=== PATIENT | female | born 1985 | race Caucasian/White ===

== ENCOUNTER → 2017-05-24 | Outpatient (CLI) | payer OTHER | END | disposition home or self-care (01) | LOC: C.PAPS 11:47 | PROVIDERS: ATTEND Physician Assistant | DX: Z12.4 Encounter for screening for malignant neoplasm of cervix (principal); Z11.51 Encounter for screening for human papillomavirus (HPV) ==

== ENCOUNTER 2018-12-05 02:22 | Inpatient (IN) ==
--- OUTSIDE RECORDS SUMMARY | 2018-12-05 02:25 | External Medical Summary | Continuity of Care Document ---
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) Depression (311) (F32.9) Allergies and Adverse Reactions Amoxicillin CAPS (Allergy) Medications Zoloft TABS , MikeyDMaria Teresa Refills: 0 Mirena (52 MG) 20 MCG/24HR Intrauterine Intrauterine Device , M.DMaria Teresa Refills: 0 Procedures History of eye surgery Status: Completed History of heart surgery Status: Complet ed History of section Status: Comp leted History of wisdom tooth extraction Statu s: Completed History of surgically induced S tatus: Completed Immunizations Immunizations not documented Family History Father Family history of cardiac disorder (V17.49) (Z82.49) Status: Active Mother Family history of type 2 diabetes mellitus (V18.0) (Z83.3) S tatus: Active Social History - Smoking Status Former smoker Plan of Treatment Planned Observations Planned Goals not documented Results No Known Results Results not documented Encounters Appointment; Ashlie Bennett PA-C 24-May-2017 9:10 Encounter Diagnosis: Problem not documented Appointment; Ashlie Bennett PA-C 15-May-2017 11:00 Encounter Diagnosis: Problem not documented Appointment; Ashlie Bennett PA-C 05-May-2017 11:40 Encounter Diagnosis: Problem not documented
[2018-12-05] MEDS ORDERED: SODIUM CHLORIDE 0.9% 1000ML 1,000 ML IV ONE ×2 (02:38→03:08)
[2018-12-05] MEDS ORDERED: LORazepam 2 MG/4 ML VIAL IV STA ×2 (02:44→03:06)
[2018-12-05 02:57] LABS: Basophils # (auto) 0.04 K/uL (0-0.2); Basophils % (auto) 0.2 %; Eosinophils # (auto) 0.05 K/uL (0-0.5); Eosinophils % (auto) 0.3 %; Hematocrit (blood only) 42.9 % (37-47); Hemoglobin 15.8 g/dL (12.0-16.0); Immature Granulocytes # (auto) 0.04 K/uL (0.00-0.02); Immature Granulocytes % (auto) 0.2 %; Lymphocytes # (auto) 2.45 K/uL (1.2-3.4); Lymphocytes % (auto) 14.4 %; Mean Corpuscular Hemoglobin 31.9 pg (25-34); Mean Corpuscular Hgb Conc 36.8 g/dL (32-36); Mean Corpuscular Volume 86.7 fL (80-100); Mean Platelet Volume 9.9 fL (7.4-10.4); Monocytes # (auto) 0.77 K/uL (0.11-0.59); Monocytes % (auto) 4.5 %; Neutrophils # (auto) 13.72 K/uL (1.4-6.5); Neutrophils % (auto) 80.4 %; Platelet Count 386 K/uL (130-400); RDW Coefficient of Variation 12.4 % (11.5-14.5); RDW Standard Deviation 39.4 fL (36.4-46.3); Red Blood Count 4.95 M/uL (4.2-5.4); White Blood Count 17.07 K/uL (4.8-10.8)
[2018-12-05] MEDS ORDERED: MAGNESIUM SULFATE / D5W 1 GM/100 ML BAG IV STA (03:13)
[2018-12-05] MEDS ORDERED: SODIUM BICARB 8.4% INJ 50 MEQ/50 ML SYR IV STA (03:13)
[2018-12-05 03:16] LABS: Alanine Aminotransferase 17 U/L (12-78); Albumin Level 4.7 gm/dl (3.4-5.0); Aspartate Aminotransferase 9 U/L (15-37); BUN Creatinine Ratio 11.9 (10-20); Blood Urea Nitrogen 13 mg/dl (7-18); Calcium 9.4 mg/dl (8.5-10.1); Carbon Dioxide 23 mmol/L (21-32); Chloride 105 mmol/L (98-107); Est GFR (African American) 79.7; Est GFR (Non-African American) 68.8; Glucose 133 mg/dl (70-99); Potassium 2.8 mmol/L (3.5-5.1); Sodium 137 mmol/L (136-145)
[2018-12-05 03:21] LABS: Pregnancy Test, Serum Negative (Negative)
[2018-12-05 03:22] LABS: Albumin Globulin Ratio 1.3 (0.9-2); Alkaline Phosphatase 98 U/L (45-117); Bilirubin,Total 0.6 mg/dl (0.2-1); Globulin 3.6 gm/dl (2.5-4.0); Total Protein 8.3 gm/dl (6.4-8.2)
[2018-12-05 03:23] LABS: Salicylate < 1.7 mg/dl (2.8-20)
[2018-12-05 03:26] LABS: Magnesium 1.9 mg/dl (1.8-2.4)
[2018-12-05] MEDS ORDERED: MAGNESIUM SULFATE / WTR 4 GM/100 ML BAG IV ONE (03:45)
[2018-12-05 03:56] LABS: Acetaminophen < 2 ug/ml (10-30)
[2018-12-05 04:24] LABS: Appearance Urine Turbid (Clear); Bacteria Urine Automated 1+ (Negative); Blood Urine 3+ (Negative); Color Urine Dark Yellow; Epithelial Cell Urine Auto >30 /lpf (0-5); Glucose Urine UA Trace (Negative); Ketones Urine Trace (Negative); Leukocyte Esterase Urine Trace (Negative); Nitrite Urine Negative (Negative); Protein Urine 2+ (Negative); Specific Gravity Urine 1.027 (1.000-1.030); Urobilinogen Urine Negative (Negative); WBC Urine Automated >30 /hpf (0-5); pH Urine 5.5 (4.5-7.5)
[2018-12-05 04:40] LABS: Bilirubin Urine Negative (Negative); Ictotest Urine Negative (Negative)
[2018-12-05 04:42] LABS: Calcium Oxalate Crystals Urine Present (None Prsent); Mucus Urine Present (None Prsent)
[2018-12-05 04:44] LABS: Granular Casts Urine >30 /lpf (0); RBC Urine Automated 0-4 /hpf (0-4)
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
[2018-12-05 05:01] LABS: Amphetamines+Metham, Urine Neg (Neg); Barbiturates, Urine Neg (Neg); Benzodiazepine, Urine Neg (Neg); Cocaine, Urine Neg (Neg); MDMA (Ecstacy), Urine Neg (Neg); Methadone, Urine Neg (Neg); Opiate, Urine Neg (Neg); Phencyclidine, Urine Neg (Neg)
[2018-12-05] MEDS ORDERED: CHLORASEPTIC 1.4% SOLN 180 ML BTL MT PRN (05:25)
[2018-12-05] MEDS ORDERED: SODIUM CHLORIDE 0.65% NA SOLN 45 ML (OCEAN) PRN (05:25)
[2018-12-05] MEDS ORDERED: POTASSIUM CHLORIDE 20 MEQ TABCR PO STA ×2 (05:25→12:04)
--- NOTE | 2018-12-05 06:02 | Emergency Department Note ---
Entered by Anneliese Hdz acting as a scribe for Sebastian Phelps MD ED Provider Note Name: Trang Delgado Age: 33 years old Arrives Via: Walk-in Informant: Patient CC: Overdose HPI: 33 year old female arrives for evaluation of an episode of an intentional overdose that occurred at 0000, approximately 2.5 hours prior to arrival. The patient states that she took 63 150mg Zoloft tablets. She states that she was trying to hurt herself by taking this medication. She reports that she became nauseous and started vomiting just prior to arrival. The patient states that she feels shaky. The patient denies taking any other medication, using drugs, and drinking alcohol tonight. She states that she did this because she caught her girlfriend cheating on her. The patient states that she has never tried to hurt herself previously. ROS: See above HPI for pertinent positives & negatives. A total of 10 systems reviewed and were otherwise negative. Past Medical History: No significant past medical history. Past Surgical History: A lot of surgeries. Family History: No significant family history. Social History: Never smoker Home Medications: Zoloft. Allergies Amoxicillin. Physical: Vitals: BP 145/100, P 110, R 20, O2 98%, Temp 98.1 F Exam: GENERAL: Dehydrated appearing. Tremulous. Actively vomiting. Patient is in no acute distress. EYES: No scleral icterus, unremarkable pupils. ENT: Mucous membranes moist, no nasal congestion. NECK: No masses appreciated, no meningismus, trachea is midline. RESPIRATORY: No dyspnea. Clear to auscultation and equal bilaterally. No wheeze, no rhonchi. CARDIOVASCULAR: Tachycardic rate and regular rhythm. No murmurs, rubs, gallops appreciated. GASTROINTESTINAL: Abdomen soft, non-tender, no peritonitis. Bowel sounds positive. No masses appreciated. BACK: No midline tenderness, no CVA tenderness EXTREMITIES: Normal motion all extremities, no cyanosis, no edema. NEUROLOGIC: Alert and oriented, no acute motor or sensory deficits, no focal weakness, cranial nerves grossly intact. PSYCH: Admits depression, suicidal ideations with attempt. SKIN: No rash, no jaundice, no diaphoresis. ED Course: Prior Medical Record, Triage/Nursing Notes, Medications, Allergies reviewed by Me Vital Signs: reviewed and remarkable for tachycardia Labs: Reviewed and remarkable for wnl Interventions: saline lock, nss bolus 2 L IV, ativan 2mg IV x 2, Magnesium 4gm IV Imaging: none EKG: Per My Interpretation: Indication overdose: Sinus tachy 129 qtc 571 qrs 80. No ectopy, no ischemia. No previous for comparison Blood pressure: Normal. No Referral necessary Course: 0240: Past medical records reviewed. The patient was evaluated in room B4B. A complete history and physical exam was performed. 0306: Upon reevaluation, the patient is increasingly tachycardic and continues to vomit. There is no ECG yet. 0317: I discussed the case with Poison Control who recommends giving 4mg of magnesium over 30 minutes and if QRS is acceptable, then hold off on the bicarb at the moment. 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 0346: I discussed the case with Dr. Mcpherson-[facility] Hospitalist who accepts the patient for further evaluation. Disposition: Hospitalization Differentials: Suicide attempt, mood disorder, poisoning, medication OD, narcotic OD, tylenol OD, salicylated OD, prolonged QTc, metabolic/electrolyte imbalance, trauma, rhabdo, infectious, amongst other pathologies entertained. Medical Decision Makin yr old female with history WPW s/p ablation arrives following zoloft overdose in response to girlfriend cheating on her. She is anticholinergic on arrival thus fluids and ativan. EKG with prolonged qtc consistent with massive SSRI overdose. Magnesium 4gm IV as per poison control. She was improving with all of these. Other labs without acute findings other than mild WBC elevation likely stress response. She is tachy but no other arrythymia at this time. She is maintaining airway and mentation is good. BP stable throughout. No evidence of other ingestion and she denies others as well. Admits this was suicide at tempt. Hospitalist in to evaluate further. Impression: Medication overdose Prolonged QT interval Suicide attempt Critical Care Time: I have personally spent greater than 45 minutes of critical care time in the direct management of this patient. Acute cardiac electrical changes due to overdose requiring rapid stabilization. This was a life/limb threatening event. This includes time spent evaluating patient, direct bedside care, chart review, placing orders, interpretation of diagnostic studies, discussion with consultants, patient, and family members, as well as other required patient management activities. This 45 minutes is in excess of all separately billable procedures. The scribe's documentation has been prepared under my direction and personally reviewed by me in its entirety. I confirm that the note above accurately reflect s all work, treatment, procedures, and medical decision making performed by me. 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 Other Information That Helps Us Care for You: No Feels Safe at Home: Yes Safety Concerns: Feels Safe At This Time Smoking Status: Never smoker Hx Alcohol Use: No Hx Substance Use: No Results & Data Vital Signs Vital Signs - 24 hr 12/05/18 02:24 12/05/18 02:37 12/05/18 02:55 Temperature 36.7 C Temperature Source Oral Sepsis Recent Fever Within 48 Hours No Sepsis Action Taken by Nursing No Action Required Pulse Rate 118 H Pulse Rate [Bilateral Apical] 108 H 116 H Respiratory Rate 20 22 20 Respiratory Effort / Characteristics Non-Labored Respiratory Depth Normal Blood Pressure 128/96 Blood Pressure [Right Arm] 128/88 134/105 H Blood Pressure Mean 106 Blood Pressure Mean [Right Arm] 101 114 Pulse Oximetry 100 98 98 Oxygen Delivery Method Room Air Room Air Room Air 12/05/18 03:13 12/05/18 04:26 12/05/18 04:36 Temperature Temperature Source Sepsis Recent Fever Within 48 Hours Sepsis Action Taken by Nursing Pulse Rate Pulse Rate [Bilateral Apical] 110 H 118 H 119 H Respiratory Rate 20 20 18 Respiratory Effort / Characteristics Respiratory Depth Blood Pressure Blood Pressure [Right Arm] 145/100 H 130/77 100/77 Blood Pressure Mean Blood Pressure Mean [Right Arm] 115 94 84 Pulse Oximetry 98 98 97 Oxygen Delivery Method Room Air Room Air Home Medications Current Medication List: was personally reviewed by me Laboratory Data Attestation: I reviewed the patient's lab results. Result diagrams: 12/05/18 02:46 12/05/18 02:46 Lab Results 12/05/18 12/05/18 12/05/18 Range/Units 02:46 02:46 02:46 WBC 17.07 H (4.8-10.8) K/uL RBC 4.95 (4.2-5.4) M/uL Hgb 15.8 (12.0-16.0) g/dL Hct 42.9 (37-47) % MCV 86.7 (80-100) fL MCH 31.9 (25-34) pg MCHC 36.8 H (32-36) g/dL RDW Std Deviation 39.4 (36.4-46.3) fL RDW Coeff of Fartun 12.4 (11.5-14.5) % Plt Count 386 (130-400) K/uL MPV 9.9 (7.4-10.4) fL Immature Gran % (Auto) 0.2 % Neut % (Auto) 80.4 % Lymph % (Auto) 14.4 % Hayes % (Auto) 4.5 % Eos % (Auto) 0.3 % Baso % (Auto) 0.2 % Immature Gran # (Auto) 0.04 H (0.00-0.02) K/uL Neut # (Auto) 13.72 H (1.4-6.5) K/uL Lymph # (Auto) 2.45 (1.2-3.4) K/uL Hayes # (Auto) 0.77 H (0.11-0.59) K/uL Eos # (Auto) 0.05 (0-0.5) K/uL Baso # (Auto) 0.04 (0-0.2) K/uL Sodium 137 (136-145) mmol/L Potassium 2.8 L (3.5-5.1) mmol/L Chloride 105 (98-107) mmol/L Carbon Dioxide 23 (21-32) mmol/L Anion Gap 9.0 (3-11) BUN 13 (7-18) mg/dl Creatinine 1.05 (0.6-1.2) mg/dl Est Cr Clr Drug Dosing Not Reportable Est GFR ( Amer) 79.7 Est GFR (Non-Af Amer) 68.8 BUN/Creatinine Ratio 11.9 (10-20) Glucose 133 H (70-99) mg/dl Calcium 9.4 (8.5-10.1) mg/dl Magnesium 1.9 (1.8-2.4) mg/dl Total Bilirubin 0.6 (0.2-1) mg/dl AST 9 L (15-37) U/L ALT 17 (12-78) U/L Alkaline Phosphatase 98 (45-117) U/L Total Protein 8.3 H (6.4-8.2) gm/dl Albumin 4.7 (3.4-5.0) gm/dl Globulin 3.6 (2.5-4.0) gm/dl Albumin/Globulin Ratio 1.3 (0.9-2) TSH 4.290 (0.300-4.500) uIu/ml HCG, Qual (Negative) Urine Color Urine Appearance (Clear) Urine pH (4.5-7.5) Ur Specific [place] (1.000-1.030) Urine Protein (Negative) Urine Glucose (UA) (Negative) Urine Ketones (Negative) Urine Blood (Negative) Urine Nitrite (Negative) Urine Bilirubin (Negative) Urine Urobilinogen (Negative) Ur Leukocyte Esterase (Negative) Urine WBC (Auto) (0-5) /hpf Urine RBC (Auto) (0-4) /hpf U Hyaline Cast (Auto) (0-5) /lpf U Epithel Cells (Auto) (0-5) /lpf Urine Bacteria (Auto) (Negative) Urine Crystals Calcium Oxalate Crystal (None Prsent) Granular Casts (0) /lpf Urine Mucus (None Prsent) Salicylates < 1.7 L (2.8-20) mg/dl Urine Opiates Screen (Neg) Ur Methadone, Qual (Neg) Acetaminophen < 2 L (10-30) ug/ml Urine Barbiturates (Neg) Ur Phencyclidine (PCP) (Neg) U Amphetamin/Meth Scrn (Neg) MDMA (Ecstasy) Screen (Neg) U Benzodiazepines Scrn (Neg) Ur Cocaine Metabolite (Neg) U Marijuana (THC) Screen (Neg) Ethyl Alcohol mg/dL (0-3) mg/dl 12/05/18 12/05/18 12/05/18 Range/Units 02:46 02:46 03:40 WBC (4.8-10.8) K/uL RBC (4.2-5.4) M/uL Hgb (12.0-16.0) g/dL Hct (37-47) % MCV (80-100) fL MCH (25-34) pg MCHC (32-36) g/dL RDW Std Deviation (36.4-46.3) fL RDW Coeff of Fartun (11.5-14.5) % Plt Count (130-400) K/uL MPV (7.4-10.4) fL Immature Gran % (Auto) % Neut % (Auto) % Lymph % (Auto) % Hayes % (Auto) % Eos % (Auto) % Baso % (Auto) % Immature Gran # (Auto) (0.00-0.02) K/uL Neut # (Auto) (1.4-6.5) K/uL Lymph # (Auto) (1.2-3.4) K/uL Hayes # (Auto) (0.11-0.59) K/uL Eos # (Auto) (0-0.5) K/uL Baso # (Auto) (0-0.2) K/uL Sodium (136-145) mmol/L Potassium (3.5-5.1) mmol/L Chloride (98-107) mmol/L Carbon Dioxide (21-32) mmol/L Anion Gap (3-11) BUN (7-18) mg/dl Creatinine (0.6-1.2) mg/dl Est Cr Clr Drug Dosing Est GFR ( Amer) Est GFR (Non-Af Amer) BUN/Creatinine Ratio (10-20) Glucose (70-99) mg/dl Calcium (8.5-10.1) mg/dl Magnesium (1.8-2.4) mg/dl Total Bilirubin (0.2-1) mg/dl AST (15-37) U/L ALT (12-78) U/L Alkaline Phosphatase (45-117) U/L Total Protein (6.4-8.2) gm/dl Albumin (3.4-5.0) gm/dl Globulin (2.5-4.0) gm/dl Albumin/Globulin Ratio (0.9-2) TSH (0.300-4.500) uIu/ml HCG, Qual Negative (Negative) Urine Color Urine Appearance (Clear) Urine pH (4.5-7.5) Ur Specific [place] (1.000-1.030) Urine Protein (Negative) Urine Glucose (UA) (Negative) Urine Ketones (Negative) Urine Blood (Negative) Urine Nitrite (Negative) Urine Bilirubin (Negative) Urine Urobilinogen (Negative) Ur Leukocyte Esterase (Negative) Urine WBC (Auto) (0-5) /hpf Urine RBC (Auto) (0-4) /hpf U Hyaline Cast (Auto) (0-5) /lpf U Epithel Cells (Auto) (0-5) /lpf Urine Bacteria (Auto) (Negative) Urine Crystals Calcium Oxalate Crystal (None Prsent) Granular Casts (0) /lpf Urine Mucus (None Prsent) Salicylates (2.8-20) mg/dl Urine Opiates Screen Neg (Neg) Ur Methadone, Qual Neg (Neg) Acetaminophen (10-30) ug/ml Urine Barbiturates Neg (Neg) Ur Phencyclidine (PCP) Neg (Neg) U Amphetamin/Meth Scrn Neg (Neg) MDMA (Ecstasy) Screen Neg (Neg) U Benzodiazepines Scrn Neg (Neg) Ur Cocaine Metabolite Neg (Neg) U Marijuana (THC) Screen Neg (Neg) Ethyl Alcohol mg/dL < 3.0 (0-3) mg/dl 12/05/18 Range/Units 03:40 WBC (4.8-10.8) K/uL RBC (4.2-5.4) M/uL Hgb (12.0-16.0) g/dL Hct (37-47) % MCV (80-100) fL MCH (25-34) pg MCHC (32-36) g/dL RDW Std Deviation (36.4-46.3) fL RDW Coeff of Fartun (11.5-14.5) % Plt Count (130-400) K/uL MPV (7.4-10.4) fL Immature Gran % (Auto) % Neut % (Auto) % Lymph % (Auto) % Hayes % (Auto) % Eos % (Auto) % Baso % (Auto) % Immature Gran # (Auto) (0.00-0.02) K/uL Neut # (Auto) (1.4-6.5) K/uL Lymph # (Auto) (1.2-3.4) K/uL Hayes # (Auto) (0.11-0.59) K/uL Eos # (Auto) (0-0.5) K/uL Baso # (Auto) (0-0.2) K/uL Sodium (136-145) mmol/L Potassium (3.5-5.1) mmol/L Chloride (98-107) mmol/L Carbon Dioxide (21-32) mmol/L Anion Gap (3-11) BUN (7-18) mg/dl Creatinine (0.6-1.2) mg/dl Est Cr Clr Drug Dosing Est GFR ( Amer) Est GFR (Non-Af Amer) BUN/Creatinine Ratio (10-20) Glucose (70-99) mg/dl Calcium (8.5-10.1) mg/dl Magnesium (1.8-2.4) mg/dl Total Bilirubin (0.2-1) mg/dl AST (15-37) U/L ALT (12-78) U/L Alkaline Phosphatase (45-117) U/L Total Protein (6.4-8.2) gm/dl Albumin (3.4-5.0) gm/dl Globulin (2.5-4.0) gm/dl Albumin/Globulin Ratio (0.9-2) TSH (0.300-4.500) uIu/ml HCG, Qual (Negative) Urine Color Dark Yellow Urine Appearance Turbid A (Clear) Urine pH 5.5 (4.5-7.5) Ur Specific [place] 1.027 (1.000-1.030) Urine Protein 2+ H (Negative) Urine Glucose (UA) Trace H (Negative) Urine Ketones Trace H (Negative) Urine Blood 3+ H (Negative) Urine Nitrite Negative (Negative) Urine Bilirubin Negative (Negative) Urine Urobilinogen Negative (Negative) Ur Leukocyte Esterase Trace H (Negative) Urine WBC (Auto) >30 H (0-5) /hpf Urine RBC (Auto) 0-4 (0-4) /hpf U Hyaline Cast (Auto) 10-30 H (0-5) /lpf U Epithel Cells (Auto) >30 H (0-5) /lpf Urine Bacteria (Auto) 1+ H (Negative) Urine Crystals Not Reportable Calcium Oxalate Crystal Present A (None Prsent) Granular Casts >30 H (0) /lpf Urine Mucus Present A (None Prsent) Salicylates (2.8-20) mg/dl Urine Opiates Screen (Neg) Ur Methadone, Qual (Neg) Acetaminophen (10-30) ug/ml Urine Barbiturates (Neg) Ur Phencyclidine (PCP) (Neg) U Amphetamin/Meth Scrn (Neg) MDMA (Ecstasy) Screen (Neg) U Benzodiazepines Scrn (Neg) Ur Cocaine Metabolite (Neg) U Marijuana (THC) Screen (Neg) Ethyl Alcohol mg/dL (0-3) mg/dl Administered Medications Discontinued Medications Sodium Chloride (Nss 1000ml) 1,000 mls @ 999 mls/hr IV .Q1H1M ONE Stop: 12/05/18 03:38 Last Infusion: 12/05/18 03:55 Dose: 0 mls/hr Documented by: [id number] Admin: 12/05/18 02:53 Dose: 999 mls/hr Documented by: [id number] Lorazepam (Ativan) 2 mg in 4 mls @ 4 mls/min IV NOW STA Stop: 12/05/18 02:45 Last Admin: 12/05/18 02:53 Dose: 4 mls/min Documented by: [id number] Lorazepam (Ativan) 2 mg in 4 mls @ 4 mls/min IV NOW STA Stop: 12/05/18 03:07 Last Admin: 12/05/18 03:43 Dose: 4 mls/min Documented by: [id number] Sodium Chloride (Nss 1000ml) 1,000 mls @ 999 mls/hr IV .Q1H1M ONE Stop: 12/05/18 04:08 Last Infusion: 12/05/18 04:48 Dose: 0 mls/hr Documented by: [id number] Admin: 12/05/18 03:55 Dose: 999 mls/hr Documented by: [id number] Magnesium Sulfate (Magnesium Sulfate / Wtr) 4 gm in 100 mls @ 200 mls/hr IV ONE ONE Stop: 12/05/18 04:14 Last Infusion: 12/05/18 04:47 Dose: 0 mls/hr Documented by: [id number] Cosigned by: [id number] Admin: 12/05/18 03:46 Dose: 200 mls/hr Documented by: [id number] Cosigned by: [id number] Sodium Bicarbonate (Sodium Bicarbonate 8.4%) 100 meq IV NOW STA Stop: 12/05/18 03:14 Last Admin: 12/05/18 03:44 Dose: 100 meq Documented by: [id number] Blood Pressure Blood Pressure Findings: Elevated blood pressure Blood Pressure Disposition: further management by hospitalist Discharge Plan Visit Data Chief Complaint: Overdose (Intentional) Stated Complaint: MEDS OVERDOSE ED Provider: Sebastian Phelps Discharge Problem: Medication overdose, Prolonged QT interval, Suicide attempt Patient Disposition: Being Evaluated by Hospitalist Discharge Instructions Interventions: ED Discharge Assessment Last Done: 12/05/18 05:27 Discharge Problem: Medication overdose Qualifiers: Encounter type: initial encounter Injury intent: intentional self-harm Qualified Code(s): T50.902A - Poisoning by unspecified drugs, medicaments and biological substances, intentional self-harm, initial encounter The scribe's documentation has been prepared under my direction and personally reviewed by me in its entirety. I confirm that the note above accurately reflects all work, treatment, procedures, and medical decision making performed by me.
[2018-12-05] MEDS: NSS + 20MEQ KCL 20 MEQ/1,000 ML BAG IV SCH ×2 (06:25→13:40)
[2018-12-05] MEDS: LORazepam 1 MG/2 ML VIAL IV PRN ×2 (07:38→22:29)
[2018-12-05] MEDS ORDERED: COUGH DROP (SUGAR FREE) LOZ 24 LOZ/1 BOX BUCCAL ONE (08:41)
[2018-12-05 10:38] LABS: BUN Creatinine Ratio 13.6 (10-20); Calcium 7.8 mg/dl (8.5-10.1); Creatinine Clr Calc Pharmacy 113.3 ml/min; Est GFR (African American) 131.3; Est GFR (Non-African American) 113.3; Potassium 3.3 mmol/L (3.5-5.1)
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
[2018-12-05] MEDS: ACETAMINOPHEN 325 MG TAB PO PRN (16:34)
--- NOTE | 2018-12-05 19:03 | History & Physical Bridge Note ---
Date of Service December 05, 2018 History & Physical Bridge Note I have examined the patient, reviewed the History & Physical and in the interval since the performance of the History & Physical I have noted the following changes of clinical significance: Feeling much better, still a little shaky and has a tremor at times in arms. No fevers, is sinus tachy on tele. ECGs with improving QTc throughout the day. Potassium being replaced. Denies CP, is a little SOB with exertion NAD, pleasant reg rhythm, tachycardic, no mgr CTAB no wcr Abd +BS soft NT ND Ext no edema or calf tenderness Neuro with 3+ DTRs in LEs bilat, 2+ in UEs bilat, strength full throughout CPK normal UA dirty sample Mild serotonin syndrome--> airway protected, improving, prolonged QT improving -continue IVFs, lyte replacement -ativan prn anxiety -follow ECG, follow on tele Psych consult-will need inpatient stay for suicide attempt
[2018-12-06] MEDS: LORazepam 1 MG/2 ML VIAL IV PRN (05:00)
[2018-12-06 06:11] LABS: Basophils # (auto) 0.03 K/uL (0-0.2); Basophils % (auto) 0.5 %; Eosinophils # (auto) 0.12 K/uL (0-0.5); Eosinophils % (auto) 1.9 %; Hematocrit (blood only) 35.8 % (37-47); Hemoglobin 12.4 g/dL (12.0-16.0); Immature Granulocytes # (auto) 0.01 K/uL (0.00-0.02); Immature Granulocytes % (auto) 0.2 %; Lymphocytes # (auto) 2.34 K/uL (1.2-3.4); Lymphocytes % (auto) 37.3 %; Mean Corpuscular Hemoglobin 31.5 pg (25-34); Mean Corpuscular Hgb Conc 34.6 g/dL (32-36); Mean Corpuscular Volume 90.9 fL (80-100); Mean Platelet Volume 9.7 fL (7.4-10.4); Monocytes # (auto) 0.39 K/uL (0.11-0.59); Monocytes % (auto) 6.2 %; Neutrophils # (auto) 3.39 K/uL (1.4-6.5); Neutrophils % (auto) 53.9 %; Platelet Count 244 K/uL (130-400); RDW Coefficient of Variation 12.6 % (11.5-14.5); RDW Standard Deviation 42.3 fL (36.4-46.3); Red Blood Count 3.94 M/uL (4.2-5.4); White Blood Count 6.28 K/uL (4.8-10.8)
[2018-12-06 06:39] LABS: BUN Creatinine Ratio 7.9 (10-20); Calcium 7.7 mg/dl (8.5-10.1); Creatinine Clr Calc Pharmacy 130.6 ml/min; Est GFR (African American) 137.6; Est GFR (Non-African American) 118.7; Potassium 3.6 mmol/L (3.5-5.1)
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
[2018-12-06] MEDS ORDERED: LORazepam 0.5 MG/1 ML VIAL IV PRN (10:44)
[2018-12-06] MEDS: NSS + 20MEQ KCL 20 MEQ/1,000 ML BAG IV SCH ×2 (10:59→20:11)
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
[2018-12-06] MEDS: ACETAMINOPHEN 325 MG TAB PO PRN (14:13)
[2018-12-06] MEDS ORDERED: PROMETHAZINE HCL 12.5 MG in SODIUM CHLORIDE 0.9% 50 ML IV PRN (14:20)
[2018-12-06] MEDS: DiphenhydrAMINE HCL 50 MG/ML VIAL IV PRN (14:48)
[2018-12-07] MEDS: NSS + 20MEQ KCL 20 MEQ/1,000 ML BAG IV SCH ×2 (05:45→16:01)
[2018-12-07 06:18] LABS: BUN Creatinine Ratio 10.7 (10-20); Calcium 7.9 mg/dl (8.5-10.1); Creatinine Clr Calc Pharmacy 122.3 ml/min; Est GFR (African American) 134.7; Est GFR (Non-African American) 116.2; Magnesium 1.8 mg/dl (1.8-2.4); Potassium 4.1 mmol/L (3.5-5.1)
[2018-12-07] MEDS: DiphenhydrAMINE HCL 50 MG/ML VIAL IV PRN (09:00)
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
[2018-12-07] MEDS ORDERED: LORazepam 0.5 MG/1 ML VIAL IV ONE (14:57)
[2018-12-07] MEDS ORDERED: GADOBUTROL 65ML VIAL IV PRN (17:25)
--- NOTE | 2018-12-07 17:32 | Magnetic Resonance Report ---
MR brain wo/w con CLINICAL HISTORY: left sided numbness neuropathy. Mental status change. COMPARISON STUDY: No previous studies for comparison. TECHNIQUE: Utilizing a 1.5 Tomasa magnet and dedicated coil, multiplanar, multiecho imaging of the br ain was performed pre and postcontrast administration. IV administration of 7 mL of Gadavist contras t was uneventful. FINDINGS: Diffusion-weighted images show no evidence for an acute ischemic event. Signal characteristics are unremarkable. No abnormal postcontrast enhancement. The ventricular system is midline. IMPRESSION: Normal study. The above report was generated using voice recognition software. It may contain grammatical, syntax or spelling errors. Electronically signed by: Andre Ambriz M.D. 12/07/2018 5:31 PM
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
== END 2018-12-07 20:40 | DRG 918 ==
LOC: ED 02:22 → SUATTDRO 04:49 → 2S 04:49

== ENCOUNTER 2018-12-07 18:39 | Inpatient (IN) ==
[2018-12-07] MEDS ORDERED: ACETAMINOPHEN 325 MG TAB PO PRN (21:23)
[2018-12-07] MEDS ORDERED: MAGNESIUM HYDROXIDE SUSP 30 ML UDC PO PRN (21:23)
[2018-12-07] MEDS ORDERED: SODIUM CHLORIDE 0.65% NA SOLN 45 ML (OCEAN) PRN (21:23)
[2018-12-07] MEDS ORDERED: ALUMINUM/MAGNESIUM SUSP 30 ML UDC PO PRN (21:23)
[2018-12-07] MEDS ORDERED: BISMUTH SUBSALICYLATE PER ML OMNICELL CHARGE PO PRN (21:23)
[2018-12-07] MEDS: LORazepam 0.5 MG TAB PO PRN (22:22)
[2018-12-08] MEDS: LORazepam 0.5 MG TAB PO PRN ×2 (12:24→19:31)
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
[2018-12-09 06:23] LABS: Basophils # (auto) 0.03 K/uL (0-0.2); Basophils % (auto) 0.4 %; Eosinophils # (auto) 0.15 K/uL (0-0.5); Eosinophils % (auto) 1.8 %; Hematocrit (blood only) 45.8 % (37-47); Hemoglobin 15.5 g/dL (12.0-16.0); Immature Granulocytes # (auto) 0.02 K/uL (0.00-0.02); Immature Granulocytes % (auto) 0.2 %; Mean Corpuscular Hemoglobin 30.8 pg (25-34); Mean Corpuscular Hgb Conc 33.8 g/dL (32-36); Mean Corpuscular Volume 91.1 fL (80-100); Mean Platelet Volume 10.2 fL (7.4-10.4); Monocytes # (auto) 0.66 K/uL (0.11-0.59); Monocytes % (auto) 7.8 %; Neutrophils # (auto) 4.89 K/uL (1.4-6.5); Neutrophils % (auto) 57.8 %; Platelet Count 291 K/uL (130-400); RDW Coefficient of Variation 12.5 % (11.5-14.5); RDW Standard Deviation 41.6 fL (36.4-46.3); Red Blood Count 5.03 M/uL (4.2-5.4); White Blood Count 8.45 K/uL (4.8-10.8)
[2018-12-09 06:59] LABS: Albumin Globulin Ratio 1.1 (0.9-2); Albumin Level 4.1 gm/dl (3.4-5.0); BUN Creatinine Ratio 20.4 (10-20); Bilirubin,Total 0.4 mg/dl (0.2-1); Calcium 9.3 mg/dl (8.5-10.1); Creatinine Clr Calc Pharmacy 91.3 ml/min; Est GFR (African American) 98.7; Est GFR (Non-African American) 85.1; Globulin 3.7 gm/dl (2.5-4.0); Total Protein 7.8 gm/dl (6.4-8.2)
[2018-12-09] MEDS: LORazepam 0.5 MG TAB PO PRN ×2 (12:59→21:52)
--- NOTE | 2018-12-09 15:39 | Psychiatric Progress Note ---
Date of Service December 09, 2018 Impression / Recommendations Impression 33-year-old female with long history of depression and anxiety, has been treated with moderate dose of Zoloft for many years but complains of waning efficacy. Status post Zoloft overdose in the setting of abrupt partner relational conflict with impulsive toxic ingestion immediately following her discovery of infidelity. While she initially endorsed some ambivalence about the unsuccessful nature of her suicide attempt, she is denying ongoing suicidal ideation or passive wish and expressing hopefulness that she will be able to reconcile with her girlfriend at time of psychiatric admission following me dical clearance. Physical symptoms of serotonin toxicity are improving with supportive care. (1) Major depressive disorder: 12/08/2018 -Patient admitted to the mental health unit on a voluntary status -She will be maintained on suicide precautions on the locked unit and expected to participate in unit programming as appropriate -She will require establishment of outpatient psychiatric and psychological follow-up -We will continue to hold antidepressant until symptoms of serotonin toxicity have completely abated. Given her long history of depression and anxiety, it appears likely that she will require re-initiation of an antidepressant to prevent further decompensation. As mood trend appears recently negative even prior to this acute circumstance, alternative SSRI choices will be considered. She may also benefit from something like mirtazapine given the significant GI symptoms she experiences with her anxiety chronically. 12/09/2018 -Preliminary visit with girlfriend went well. She will need a family meeting scheduled which appears unlikely to occur until Monday -Patient not yet able to convincingly contract for safety outside of the hospital -We will continue to hold antidepressant until dizziness is resolved (2) Serotonin syndrome: 12/08/2018 -Patient medically cleared for transfer yesterday -Demonstrating mild residual symptoms of serotonin toxicity this morning. Vital signs fairly unremarkable apart from mild tachycardia at 92 bpm -We will continue Ativan 0.5 mg every 6 hours as needed for now -She was encouraged to push oral fluid intake -repeat CMP and CBC in a.m. 12/09/2018 -Vital stable. Repeat labs look good as above apart from elevated BUN. Patient strongly encouraged to increase oral fluid intake Still holding antidepressant as above (3) Suicide attempt: 12/08/2018 -Impulsive toxic ingestion as per admission HPI -Denying ongoing suicidal ideation or intent at time of admission to behavioral health unit -Patient reports period of monitoring and assistance with coping strategies prior to discharge to mitigate risk for further self injury (4) Generalized anxiety disorder: 12/08/2018 -Appears long-standing and not simply relegated to times of mood decomp ensation -Continue Ativan and hydroxyzine prn's -We will consider alternative antidepressant treatment options when serotonin toxicity is fully resolved Inventory Assets Strengths: Help seeking Needs: Provision of safety, therapy, pharmacotherapy Risk Factors Assessment Male: No : Yes Do You Have Access To A Gun?: No Health Problems: No Mental Health Diagnoses: Yes Substance Use Disorders: No Previous Attempt: No Family History of Suicide: No Previous Psychiatric Hospitalization: No Hopelessness: No Protective Factors Assessment : No Employed: Yes Interval History Chief Complaint "I am just sad". Review of Systems Notes Dizziness, fair appetite, denies diarrhea Sleep Information Total Hours of Sleep: 8.5 Meal Information Percent Meal Consumed - Breakfast: 40 Percent Meal Consumed - Lunch: 100 Percent Meal Consumed - Dinner: 25 Subjective Subjective Patient was seen & assessed and interval progress reviewed with treatment team. Patient was visited by her girlfriend last evening which reportedly went fairly well. She was tearful following the visit and requested Ativan x1. Patient reports girlfriend wants to reconcile as well and feeling more hopeful but seemingly a little desperate to be discharged home to be with her girlfriend again. She acknowledges some hopefulness that they will be able to work things out but still feeling sad and describes herself as withdrawn. Despite her improving future orientation she is unable to get convincingly contract for safety and states "I do not know" when asked about ongoing suicidal ideation. Physical Exam Psychiatric Orientation: alert, oriented x 3 and cooperative Apperance: + disheveled Eye Contact: + fair eye contact Motor Behavior: n tremor Speech: normal rate/rhythm/volume of speech Affect: + depressed affect and + tearful affect Sad Thought Process: + perseveration Thought Content: + preoccupation and reality based without delusions Suicidal Thoughts: denies suicidal intent; + reports suicidal thoughts Homicidal Thoughts: denies homicidal thoughts Hallucinations: no auditory hallucinations and no visual hallucinations Cognition: language grossly intact Estimated Intelligence: average estimated intelligence Insight: + fair insight Judgement: + limited judgement Vital Signs (Past 24 Hours) Last Vital Signs Temp 36.6 C 12/09/18 06:44 Pulse 84 12/09/18 06:45 Resp 18 12/09/18 06:44 BP 118/86 12/09/18 06:45 Pulse Ox 98 12/07/18 20:50 Results & Data Laboratory Results Laboratory Results - last 24 hr 12/09/18 12/09/18 06:07 06:07 WBC 8.45 RBC 5.03 Hgb 15.5 Hct 45.8 MCV 91.1 MCH 30.8 MCHC 33.8 RDW Std Deviation 41.6 RDW Coeff of Fartun 12.5 Plt Count 291 MPV 10.2 Immature Gran % (Auto) 0.2 Neut % (Auto) 57.8 Lymph % (Auto) 32.0 [place] % (Auto) 7.8 Eos % (Auto) 1.8 Baso % (Auto) 0.4 Immature Gran # (Auto) 0.02 Neut # (Auto) 4.89 Lymph # (Auto) 2.70 [place] # (Auto) 0.66 H Eos # (Auto) 0.15 Baso # (Auto) 0.03 Sodium 138 Potassium 4.0 Chloride 102 Carbon Dioxide 30 Anion Gap 6.0 BUN 18 Creatinine 0.88 Est Cr Clr Drug Dosing 91.3 Est GFR ( Amer) 98.7 Est GFR (Non-Af Amer) 85.1 BUN/Creatinine Ratio 20.4 H Glucose 93 Calcium 9.3 Total Bilirubin 0.4 AST 10 L ALT 20 Alkaline Phosphatase 87 Total Protein 7.8 Albumin 4.1 Globulin 3.7 Albumin/Globulin Ratio 1.1 Current Inpatient Medications Current Inpatient Medications: Current Inpatient Medications Acetaminophen (Tylenol) 650 mg PO Q4H PRN PRN Reason: Headache or Minor Fever Stop: 01/06/19 21:22 Al Hydrox/Mg Hydrox/Simethicone (Maalox) 30 ml PO Q4H PRN PRN Reason: GI Upset Stop: 01/06/19 21:22 Bismuth Subsalicylate (Kaopectate) 15 ml PO PRN PRN PRN Reason: Loose Stool Stop: 01/06/19 21:22 Diphenhydramine HCl (Benadryl Capsule) 50 mg PO Q6 PRN PRN Reason: Nausea Stop: 01/06/19 21:24 Hydroxyzine HCl (Vistaril) 50 mg PO HSZ PRN PRN Reason: Insomnia Stop: 01/06/19 21:22 Hydroxyzine HCl (Vistaril) 25 mg PO Q4H PRN PRN Reason: Anxiety Stop: 01/06/19 21:22 Lorazepam (Ativan) 0.5 mg PO Q6 PRN PRN Reason: Anxiety Stop: 01/06/19 21:27 Last Admin: 12/09/18 12:59 Dose: 0.5 mg Documented by: Magnesium Hydroxide (Milk Of Magnesia) 30 ml PO DAILY PRN PRN Reason: Constipation Stop: 01/06/19 21:22 Sodium Chloride ([place] Nasal) 1 - 2 sprays NA PRN PRN PRN Reason: Nasal Dryness/Congestion Stop: 01/06/19 21:22 Mental Health & Subst Abuse Tx Therapist Name of Therapist: none Can Sealer Name of Can Sealer: none Post Discharge Appointments Primary Care Physician Name Of Family Doctor: [facility] - Krystle Reyes PA-C Primary Care Provider Appointment Comment: [address] [place] [address] Dr Villalobos, [place] [id number] Contact Information Discharge Discharge Address: [address] [place] [address], [place] [address]
--- NOTE | 2018-12-10 12:00 | Psychiatric Progress Note ---
Date of Service December 10, 2018 Impression / Recommendations Impression 33-year-old female with long history of depression and anxiety, has been treated with moderate dose of Zoloft for many years but complains of waning efficacy. Status post Zoloft overdose in the setting of abrupt partner relational conflict with impulsive toxic ingestion immediately following her discovery of infidelity. While she initially endorsed some ambivalence about the unsuccessful nature of her suicide attempt, she is denying ongoing suicidal ideation or passive wish and expressing hopefulness that she will be able to reconcile with her girlfriend at time of psychiatric admission following me dical clearance. Family meeting with girlfriend is scheduled for tomorrow. Physical symptoms of serotonin toxicity are nearly resolved, only one event of dizziness this morning. Risks, benefits, alternatives, and potential side effects of fluoxetine were reviewed with patient, who verbalized understanding and is agreeable with beginning the medication tomorrow morning. Encouraged to hold dose if symptoms of serotonin syndrome recur. Pt remains at high risk of destabilization and continued impulsive harmful behavior if she is discharged prior to adequate mitigation of risk factors. Inpatient psychiatric admission remains medically necessary. (1) Major depressive disorder: 12/08/2018 -Patient admitted to the mental health unit on a voluntary status -She will be maintained on suicide precautions on the locked unit and expected to participate in unit programming as appropriate -She will require establishment of outpatient psychiatric and psychological follow-up -We will continue to hold antidepressant until symptoms of serotonin toxicity have completely abated. Given her long history of depression and anxiety, it appears likely that she will require re-initiation of an antidepressant to prevent further decompensation. As mood trend appears recently negative even prior to this acute circumstance, alternative SSRI choices will be considered. She may also benefit from something like mirtazapine given the significant GI symptoms she experiences with her anxiety chronically. 12/09/2018 -Preliminary visit with girlfriend went well. She will need a family meeting scheduled which appears unlikely to occur until Monday -Patient not yet able to convincingly contract for safety outside of the hospital -We will continue to hold antidepressant until dizziness is resolved 12/10 - Symptoms which may have been related to a serotonin toxicity have reportedly improved, pt reporting only one episode of dizziness today which she states was related to a position change - Reviewed antidepressant medication possibilities with patient, who is in favor of initiation of fluoxetine - reviewed risks, benefits, and potential side effects of the medication, patient verbalizing understanding - Fluoxetine 20mg ordered for tomorrow morning, pt instructed to hold dose if she continues to have physical symptoms of serotonin syndrome (2) Serotonin syndrome: 12/08/2018 -Patient medically cleared for transfer yesterday -Demonstrating mild residual symptoms of serotonin toxicity this morning. Vital signs fairly unremarkable apart from mild tachycardia at 92 bpm -We will continue Ativan 0.5 mg every 6 hours as needed for now -She was encouraged to push oral fluid intake -repeat CMP and CBC in a.m. 12/09/2018 -Vital stable. Repeat labs look good as above apart from elevated BUN. Patient strongly encouraged to increase oral fluid intake Still holding antidepressant as above 12/10 - Symptoms nearly resolved; pt agreeable to initiating SSRI tomorrow morning, encouraged to hold if symptoms recur (3) Suicide attempt: 12/08/2018 -Impulsive toxic ingestion as per admission HPI -Denying ongoing suicidal ideation or intent at time of admission to behavioral health unit -Patient reports period of monitoring and assistance with coping strategies prior to discharge to mitigate risk for further self injury 12/10 - Denies SI (4) Generalized anxiety disorder: 12/08/2018 -Appears long-standing and not simply relegated to times of mood decompensation -Continue Ativan and hydroxyzine prn's -We will consider alternative antidepressant treatment options when serotonin toxicity is fully resolved 12/10 - Continue hydroxyzine prn, discussed favoring hydroxyzine over lorazepam if possible - Initiating fluoxetine 20mg as above to target mood and anxiety Inventory Assets Strengths: Help seeking Needs: Provision of safety, therapy, pharmacotherapy Risk Factors Assessment Male: No : Yes Do You Have Access To A Gun?: No Health Problems: No Mental Health Diagnoses: Yes Substance Use Disorders: No Previous Attempt: No Family History of Suicide: No Previous Psychiatric Hospitalization: No Hopelessness: No Protective Factors Assessment : No Employed: Yes Interval History Identifying Information MARTINA BARDALES is a 33-year-old F admitted on 12/07/18 18:39 on a 201 voluntary commitment status post sertraline overdose in a suicide attempt. She was admitted from the medical floor on 12/07/2018 following medical clearance. Chief Complaint "I am feeling better, my blurry vision is better today." Review of Systems Notes Constitutional: reports only 1 episode of dizziness, related to position change Cardiovascular: denied Respiratory: denied Gastrointestinal: denied Neurological: denied Psychiatric: denies symptoms other than stated above Total of at least 10 systems reviewed, pertinent positives as above and in HPI. Sleep Information Total Hours of Sleep: 7 Sleep Comments: pt on q-15 minute checks Meal Information Percent Meal Consumed - Breakfast: 100 Percent Meal Consumed - Lunch: 100 Percent Meal Consumed - Dinner: 100 Subjective Subjective Patient was seen & assessed and interval progress reviewed with treatment team. Staff report the patient has not been able to attend many groups due to reported physical concerns. Symptoms likely related to serotonin toxicity are improving reportedly. Patient is scheduled for a meeting with her girlfriend tomorrow afternoon. She has been denying suicidality to staff, but was unable to identify intrinsic reasons to live. Patient was seen today to assess progress since admission. She states that physically she is feeling a bit better. Patient reports one episode of dizziness this morning, when going from a sitting to standing position. Patient states the dizziness resolved, and has not recurred. Patient denies any continued problems with her vision, or other symptoms suggestive of continued serotonin toxicity. Patient is tearful during the encounter, verbalizing a desire to reconcile with her girlfriend. She is excited for the meeting tomorrow, and hopes they are able to "just move past this." Patient denies continuing suicidality. She admits that her mood has not been great today, but states it has been relatively consistent throughout the day. Discussed with patient the possibility of restarting antidepressant medications tomorrow morning, giving physical symptoms a chance to resolve in their entirety. We reviewed other antidepressant options, and patient is agreeable with initiation of fluoxetine after discussing likely benefit for energy and motivation. Patient was comfortable starting the medication tomorrow morning. Patient denies other acute needs or concerns at this time. Physical Exam Psychiatric Orientation: alert, oriented x 3 and cooperative Apperance: appropriately dressed, appropriately groomed and appeared stated age Eye Contact: good eye contact Motor Behavior: no abnormal motor movements (Observed while sitting upright on bed); n tremor Speech: normal rate/rhythm/volume of speech Affect: + depressed affect and + tearful affect Mood: + depressed mood ("Eh, not great") Thought Process: goal directed thought process, linear/logical thought process, clear/coherent thought process and thought association intact Thought Content: reality based without delusions; no hopelessness and no loneliness Suicidal Thoughts: denies suicidal thoughts and denies suicidal intent Homicidal Thoughts: denies homicidal thoughts Hallucinations: no auditory hallucinations and no visual hallucinations Cognition: recent memory grossly intact, attention grossly intact and language grossly intact Insight: + fair insight Judgement: + fair judgement Vital Signs (Past 24 Hours) Last Vital Signs Temp 36.6 C 12/10/18 06:37 Pulse 83 12/10/18 06:38 Resp 18 12/10/18 06:37 BP 109/76 12/10/18 06:38 Pulse Ox 98 12/07/18 20:50 Results & Data Current Inpatient Medications Current Inpatient Medications: Current Inpatient Medications Acetaminophen (Tylenol) 650 mg PO Q4H PRN PRN Reason: Headache or Minor Fever Stop: 01/06/19 21:22 Last Admin: 12/09/18 20:05 Dose: 650 mg Documented by: Al Hydrox/Mg Hydrox/Simethicone (Maalox) 30 ml PO Q4H PRN PRN Reason: GI Upset Stop: 01/06/19 21:22 Bismuth Subsalicylate (Kaopectate) 15 ml PO PRN PRN PRN Reason: Loose Stool Stop: 01/06/19 21:22 Diphenhydramine HCl (Benadryl Capsule) 50 mg PO Q6 PRN PRN Reason: Nausea Stop: 01/06/19 21:24 Hydroxyzine HCl (Vistaril) 50 mg PO HSZ PRN PRN Reason: Insomnia Stop: 01/06/19 21:22 Hydroxyzine HCl (Vistaril) 25 mg PO Q4H PRN PRN Reason: Anxiety Stop: 01/06/19 21:22 Lorazepam (Ativan) 0.5 mg PO Q6 PRN PRN Reason: Anxiety Stop: 01/06/19 21:27 Last Admin: 12/09/18 21:52 Dose: 0.5 mg Documented by: Magnesium Hydroxide (Milk Of Magnesia) 30 ml PO DAILY PRN PRN Reason: Constipation Stop: 01/06/19 21:22 Sodium Chloride (Carter Nasal) 1 - 2 sprays NA PRN PRN PRN Reason: Nasal Dryness/Congestion Stop: 01/06/19 21:22 Mental Health & Subst Abuse Tx Therapist Name of Therapist: none Reading Assistant Name of Reading Assistant: none Post Discharge Appointments Primary Care Physician Name Of Family Doctor: [facility] Krystle Reyes PA-C Primary Care Provider Appointment Comment: [address] [place] [address] [address], [place] [id number] Contact Information Discharge Discharge Address: [address] [place] [address], [place] [address]
[2018-12-11] MEDS: LORazepam 0.5 MG TAB PO PRN (08:26)
--- NOTE | 2018-12-11 09:15 | Psychiatric Progress Note ---
Date of Service December 11, 2018 Impression / Recommendations Impression 33-year-old female with long history of depression and anxiety, has been treated with moderate dose of Zoloft for many years but complains of waning efficacy. Status post Zoloft overdose in the setting of abrupt partner relational conflict with impulsive toxic ingestion immediately following her discovery of infidelity. While she initially endorsed some ambivalence about the unsuccessful nature of her suicide attempt, she is denying ongoing suicidal ideation or passive wish and expressing hopefulness that she will be able to reconcile with her girlfriend at time of psychiatric admission following me dical clearance. Family meeting with girlfriend is scheduled for this afternoon. Pt reports episodic dizziness with position changes, but otherwise denying symptoms consistent with serotonin syndrome. To be cautious, will initiate fluoxetine at 10mg this morning, then titrate to originally discussed dose of 20mg tomorrow. Signs and symptoms of serotonin syndrome were reviewed, and patient was encouraged to inform staff of any physical concerns. Pt remains at high risk of destabilization and continued impulsive harmful behavior if she is discharged prior to adequate mitigation of risk factors. Inpatient psychiatric admission remains medically necessary. (1) Major depressive disorder: 12/08/2018 -Patient admitted to the mental health unit on a voluntary status -She will be maintained on suicide precautions on the locked unit and expected to participate in unit programming as appropriate -She will require establishment of outpatient psychiatric and psychological follow-up -We will continue to hold antidepressant until symptoms of serotonin toxicity have completely abated. Given her long history of depression and anxiety, it appears likely that she will require re-initiation of an antidepressant to prevent further decompensation. As mood trend appears recently negative even prior to this acute circumstance, alternative SSRI choices will be considered. She may also benefit from something like mirtazapine given the significant GI symptoms she experiences with her anxiety chronically. 12/09/2018 -Preliminary visit with girlfriend went well. She will need a family meeting scheduled which appears unlikely to occur until Monday -Patient not yet able to convincingly contract for safety outside of the hospital -We will continue to hold antidepressant until dizziness is resolved 12/10 - Symptoms which may have been related to a serotonin toxicity have reportedly improved, pt reporting only one episode of dizziness today which she states was related to a position change - Reviewed antidepressant medication possibilities with patient, who is in favor of initiation of fluoxetine - reviewed risks, benefits, and potential side effects of the medication, patient verbalizing understanding - Fluoxetine 20mg ordered for tomorrow morning, pt instructed to hold dose if she continues to have physical symptoms of serotonin syndrome 12/11 - 20mg of fluoxetine held this morning due to physical complaints verbalized by patient - only current complaints are episodic dizziness related to position changes - pt was agreeable to beginning 10mg of fluoxetine this morning, with titration to 20mg tomorrow morning if she tolerates initial dose. S/S of serotonin syndrome were reviewed, pt encouraged to inform staff of any physical complaints - Family meeting scheduled with girlfriend this afternoon (2) Serotonin syndrome: 12/08/2018 -Patient medically cleared for transfer yesterday -Demonstrating mild residual symptoms of serotonin toxicity this morning. Vital signs fairly unremarkable apart from mild tachycardia at 92 bpm -We will continue Ativan 0.5 mg every 6 hours as needed for now -She was encouraged to push oral fluid intake -repeat CMP and CBC in a.m. 12/09/2018 -Vital stable. Repeat labs look good as above apart from elevated BUN. Patient strongly encouraged to increase oral fluid intake Still holding antidepressant as above 12/10 - Symptoms nearly resolved; pt agreeable to initiating SSRI tomorrow morning, encouraged to hold if symptoms recur 12/11 - Current reports of episodic dizziness with position changes is not considered to be a continuation of possible serotonin syndrome. Fluoxetine will be initiated at a lower dosage than initially discussed, patient encouraged to inform staff of any physical complaints (3) Suicide attempt: 12/08/2018 -Impulsive toxic ingestion as per admission HPI -Denying ongoing suicidal ideation or intent at time of admission to behavioral health unit -Patient reports period of monitoring and assistance with coping strategies prior to discharge to mitigate risk for further self injury 12/10 - 12/11 - Denies SI (4) Generalized anxiety disorder: 12/08/2018 -Appears long-standing and not simply relegated to times of mood decompensation -Continue Ativan and hydroxyzine prn's -We will consider alternative antidepressant treatment options when serotonin toxicity is fully resolved 12/10 - Continue hydroxyzine prn, discussed favoring hydroxyzine over lorazepam if possible - Initiating fluoxetine 20mg as above to target mood and anxiety 12/11 - As above Inventory Assets Strengths: Help seeking Needs: Provision of safety, therapy, pharmacotherapy Risk Factors Assessment Male: No : Yes Do You Have Access To A Gun?: No Health Problems: No Mental Health Diagnoses: Yes Substance Use Disorders: No Previous Attempt: No Family History of Suicide: No Previous Psychiatric Hospitalization: No Hopelessness: No Protective Factors Assessment : No Employed: Yes Interval History Identifying Information MARTINA BARDALES is a 33-year-old F admitted on 12/07/18 18:39 on a 201 voluntary commitment status post sertraline overdose in a suicide attempt. She was admitted from the medical floor on 12/07/2018 following medical clearance. Chief Complaint "I am just really tired." Review of Systems Notes Constitutional: reports fatigue; one episode of dizziness this AM with a position change Cardiovascular: denied Respiratory: denied Gastrointestinal: denied Neurological: denied Psychiatric: denies symptoms other than stated above Total of at least 10 systems reviewed, pertinent positives as above and in HPI. Sleep Information Total Hours of Sleep: 7.5 Sleep Comments: pt on q-15 minute checks Meal Information Percent Meal Consumed - Breakfast: 100 Percent Meal Consumed - Lunch: 50 Percent Meal Consumed - Dinner: 90 Subjective Subjective Patient was seen & assessed and interval progress reviewed with nursing and social work. Staff reports patient is scheduled for a meeting with her girlfriend this afternoon. This morning, she did report to staff that she had an episode of dizziness and felt "jittery." Administration of initial dose of fluoxetine was held until patient spoke with provider. She was seen today to assess progress since admission. Patient states that she is "tired" today, as she did not sleep well last evening. Patient states she did not request hydroxyzine to aid her sleep, but is aware that it is available to her. Patient states that she did not take fluoxetine this morning, but verbalizes only one episode of dizziness this morning with position changes. Otherwise patient denies any physical concerns suggestive of serotonin syndrome. Patient states "I am trying to do everything I need to do to get better and get out of here, I really want to start medications." Risks and benefits of initiating fluoxetine today were discussed, and it was recommended that we initiate the medication at a lower dose than originally discussed. Patient verbalized understanding of the recommendation and risks associated, and is agreeable with beginning 10 mg of fluoxetine today. She states that she is mostly "excited" for her meeting with her girlfriend. She shares with this provider that they are both supports to each other, and she is sad that she is not able to be with her girlfriend to provide that support. Patient believes the meeting will go well and states "I just want to be back with my girl." Patient denies ongoing suicidal ideation. She denies other acute needs or concerns at this time. Physical Exam Psychiatric Orientation: alert, oriented x 3 and cooperative (pleasant, but fatigued) Apperance: appropriately dressed (casually), + disheveled (laying in bed, not yet groomed for the day) and appeared stated age Eye Contact: good eye contact Motor Behavior: no abnormal motor movements (observed while laying in bed) Speech: normal rate/rhythm/volume of speech Affect: + depressed affect (appearing fatigued) and mood congruent with affect Mood: + depressed mood Thought Process: goal directed thought process, linear/logical thought process, clear/coherent thought process and thought association intact Thought Content: reality based without delusions; no hopelessness and no loneliness Suicidal Thoughts: denies suicidal thoughts, denies suicidal plan and denies suicidal intent Homicidal Thoughts: denies homicidal thoughts Hallucinations: no auditory hallucinations and no visual hallucinations Cognition: attention grossly intact and language grossly intact Insight: + fair insight Judgement: + fair judgement Vital Signs (Past 24 Hours) Last Vital Signs Temp 36.6 C 12/11/18 06:43 Pulse 83 12/11/18 06:43 Resp 18 12/11/18 06:43 BP 108/78 12/11/18 06:43 Pulse Ox 98 12/07/18 20:50 Results & Data Current Inpatient Medications Current Inpatient Medications: Current Inpatient Medications Acetaminophen (Tylenol) 650 mg PO Q4H PRN PRN Reason: Headache or Minor Fever Stop: 01/06/19 21:22 Last Admin: 12/09/18 20:05 Dose: 650 mg Documented by: Al Hydrox/Mg Hydrox/Simethicone (Maalox) 30 ml PO Q4H PRN PRN Reason: GI Upset Stop: 01/06/19 21:22 Bismuth Subsalicylate (Kaopectate) 15 ml PO PRN PRN PRN Reason: Loose Stool Stop: 01/06/19 21:22 Diphenhydramine HCl (Benadryl Capsule) 50 mg PO Q6 PRN PRN Reason: Nausea Stop: 01/06/19 21:24 Fluoxetine HCl (Prozac) 20 mg PO QAM YUNIEL Stop: 01/10/19 08:59 Hydroxyzine HCl (Vistaril) 50 mg PO HSZ PRN PRN Reason: Insomnia Stop: 01/06/19 21:22 Hydroxyzine HCl (Vistaril) 25 mg PO Q4H PRN PRN Reason: Anxiety Stop: 01/06/19 21:22 Lorazepam (Ativan) 0.5 mg PO Q6 PRN PRN Reason: Anxiety Stop: 01/06/19 21:27 Last Admin: 12/11/18 08:26 Dose: 0.5 mg Documented by: Magnesium Hydroxide (Milk Of Magnesia) 30 ml PO DAILY PRN PRN Reason: Constipation Stop: 01/06/19 21:22 Sodium Chloride (Ariton Nasal) 1 - 2 sprays NA PRN PRN PRN Reason: Nasal Dryness/Congestion Stop: 01/06/19 21:22 Mental Health & Subst Abuse Tx Therapist Name of Therapist: none Rn Mds Name of Rn Mds: none Post Discharge Appointments Primary Care Physician Name Of Family Doctor: [facility] - Krystle Reyes PA-C Primary Care Provider Appointment Comment: [address] [place] [address] [address], [place] [address] Contact Information Discharge Discharge Address: [address] [place] [id number]
[2018-12-11] MEDS: FLUOXETINE HCL 20 MG CAP PO SCH (09:32)
[2018-12-11] MEDS ORDERED: FLUOXETINE HCL 10 MG CAP PO ONE (10:44)
[2018-12-12] MEDS: FLUOXETINE HCL 20 MG CAP PO SCH (09:06)
--- NOTE | 2018-12-12 10:44 | Psychiatric Progress Note ---
Date of Service December 12, 2018 Impression / Recommendations Impression 33-year-old female with long history of depression and anxiety, has been treated with moderate dose of Zoloft for many years but complains of waning efficacy. Status post Zoloft overdose in the setting of abrupt partner relational conflict with impulsive toxic ingestion immediately following her discovery of infidelity. While she initially endorsed some ambivalence about the unsuccessful nature of her suicide attempt, she is denying ongoing suicidal ideation or passive wish and expressing hopefulness that she will be able to reconcile with her girlfriend at time of psychiatric admission following me dical clearance. Family meeting with girlfriend was held, which demonstrated a rather codependent relationship - status of their relationship remains unclear. Fluoxetine 20mg daily has been initiation, will consider further titration over the next few days. Pt admits to SI with specific plan to end her life here on the unit after a difficult meeting with her girlfriend. Although SI has resolve d today, she admits that there has not been a change in how she plans to handle these thoughts after discharge, and she remains unable to contract for safety outside of the hospital setting. Pt remains at high risk of destabilization and continued impulsive harmful behavior if she is discharged prior to adequate mitigation of risk factors. Inpatient psychiatric admission remains medically necessary. (1) Suicide attempt: 12/08/2018 -Impulsive toxic ingestion as per admission HPI -Denying ongoing suicidal ideation or intent at time of admission to behavioral health unit -Patient reports period of monitoring and assistance with coping strategies prior to discharge to mitigate risk for further self injury 12/10 - 12/11 - Denies SI 12/12 - Admits to SI last evening with specific plan to rip her sheets and hang herself on the door knob, denies act of furtherance - Continue to assist with development of safety planning and practicing effe ctive coping strategies (2) Major depressive disorder: 12/08/2018 -Patient admitted to the mental health unit on a voluntary status -She will be maintained on suicide precautions on the locked unit and expected to participate in unit programming as appropriate -She will require establishment of outpatient psychiatric and psychological follow-up -We will continue to hold antidepressant until symptoms of serotonin toxicity have completely abated. Given her long history of depression and anxiety, it appears likely that she will require re-initiation of an antidepressant to prevent further decompensation. As mood trend appears recently negative even prior to this acute circumstance, alternative SSRI choices will be considered. She may also benefit from something like mirtazapine given the significant GI symptoms she experiences with her anxiety chronically. 12/09/2018 -Preliminary visit with girlfriend went well. She will need a family meeting scheduled which appears unlikely to occur until Monday -Patient not yet able to convincingly contract for safety outside of the hospital -We will continue to hold antidepressant until dizziness is resolved 12/10 - Symptoms which may have been related to a serotonin toxicity have reportedly improved, pt reporting only one episode of dizziness today which she states was related to a position change - Reviewed antidepressant medication possibilities with patient, who is in favor of initiation of fluoxetine - reviewed risks, benefits, and potential side effects of the medication, patient verbalizing understanding - Fluoxetine 20mg ordered for tomorrow morning, pt instructed to hold dose if she continues to have physical symptoms of serotonin syndrome 12/11 - 20mg of fluoxetine held this morning due to physical complaints verbalized by patient - only current complaints are episodic dizziness related to position changes - pt was agreeable to beginning 10mg of fluoxetine this morning, with titration to 20mg tomorrow morning if she tolerates initial dose. S/S of serotonin syndrome were reviewed, pt encouraged to inform staff of any physical complaints - Family meeting scheduled with girlfriend this afternoon 12/12 - Continue fluoxetine 20mg daily, consider further titration to 40mg tomorrow - Status of relationship with girlfriend remains unclear at this time - Coordinate aftercare planning with regard to outpatient providers (3) Serotonin syndrome: 12/08/2018 -Patient medically cleared for transfer yesterday -Demonstrating mild residual symptoms of serotonin toxicity this morning. Vital signs fairly unremarkable apart from mild tachycardia at 92 bpm -We will continue Ativan 0.5 mg every 6 hours as needed for now -She was encouraged to push oral fluid intake -repeat CMP and CBC in a.m. 12/09/2018 -Vital stable. Repeat labs look good as above apart from elevated BUN. Patient strongly encouraged to increase oral fluid intake Still holding antidepressant as above 12/10 - Symptoms nearly resolved; pt agreeable to initiating SSRI tomorrow morning, encouraged to hold if symptoms recur 12/11 - Current reports of episodic dizziness with position changes is not considered to be a continuation of possible serotonin syndrome. Fluoxetine will be initiated at a lower dosage than initially discussed, patient encouraged to inform staff of any physical complaints 12/12 - Considered resolved at this time (4) Generalized anxiety disorder: 12/08/2018 -Appears long-standing and not simply relegated to times of mood decompensation -Continue Ativan and hydroxyzine prn's -We will consider alternative antidepressant treatment options when serotonin toxicity is fully resolved 12/10 - Continue hydroxyzine prn, discussed favoring hydroxyzine over lorazepam if possible - Initiating fluoxetine 20mg as above to target mood and anxiety 12/11 - As above Inventory Assets Strengths: Help seeking Needs: Provision of safety, therapy, pharmacotherapy Risk Factors Assessment Male: No : Yes Do You Have Access To A Gun?: No Health Problems: No Mental Health Diagnoses: Yes Substance Use Disorders: No Previous Attempt: No Family History of Suicide: No Previous Psychiatric Hospitalization: No Hopelessness: No Protective Factors Assessment : No Employed: Yes Interval History Identifying Information MARTINA BARDALES is a 33-year-old F admitted on 12/07/18 18:39 on a 201 voluntary commitment status post sertraline overdose in a suicide attempt. She was admitted from the medical floor on 12/07/2018 following medical clearance. Chief Complaint "Better today." Review of Systems Notes Constitutional: denied Cardiovascular: denied Respiratory: denied Gastrointestinal: denied Neurological: denied Psychiatric: denies symptoms other than stated above Total of at least 10 systems reviewed, pertinent positives as above and in HPI. Sleep Information Total Hours of Sleep: 7 Sleep Comments: pt on q-15 minute checks Meal Information Percent Meal Consumed - Breakfast: 100 Percent Meal Consumed - Lunch: 0 Percent Meal Consumed - Dinner: 75 Nutrition Comment: pt. upset after family meeting. meal dated, labeled and refrigerated Subjective Subjective Patient was seen & assessed and interval progress reviewed with treatment team. Staff reports that the patient had a somewhat difficult meeting with her girlfriend yesterday, as the girlfriend apparently had broken up with patient on the unit prior to the meeting. Patient has reportedly been tolerating initiation of fluoxetine. Patient was seen today to assess progress since admission. She shares with this provider that she is feeling "better today", stating that her meeting yesterday with her girlfriend "just was not good." The patient states she did receive a visit from her girlfriend last evening, in which the girlfriend reportedly stated that she felt she had miscommunicated some of her concerns and feelings. Patient's perception of the conversation was that they had not actually broken out, and just needed to separate themselves in order to work out individual needs. Patient states "the meeting was pretty rough, but I really think it helped. My girlfriend left the meeting and called her therapist right away. We had a wonderful visit last night." The patient does admit that she was experiencing suicidal ideation yesterday after the meeting, "while lying in my bed just thinking about everything." In this provider's attempts to discuss these thoughts further, the patient replies "D*mn, I was really hoping no one would ask me these questions." The patient states that she did have thoughts to "ripped my sheets and hang myself on the doorknob of my room." When asked what prevented her from acting on this plan, the patient states "probably just the fact that they were coming in every 5 minutes to check on me and asked how I was doing." This provider asked the patient if she feels she would be able to handle the situations without resorting to suicidal ideation or actions outside of the hospital, to which the patient responded "I do not know." Patient was encouraged by this provider to continue to discuss safety planning with staff, in order to set up barriers to impulsive harmful actions with difficult news in the future. We discussed that suicidal gestures and attempts to become a harmful pattern for the patient, and that it may take significant practice with various coping strategies in order to prevent this behavior from continuing. Patient admits that she wants to make things work with her girlfriend, and is motivated to continue to live for this reason. She denies suicidal ideation today, and denies acute needs or concerns. Physical Exam Psychiatric Orientation: alert, oriented x 3 and cooperative Apperance: appropriately dressed (Casually, in zip up sweatshirt and scrub pants), appropriately groomed and appeared stated age Eye Contact: good eye contact Motor Behavior: steady gait and station and no abnormal motor movements Speech: normal rate/rhythm/volume of speech Affect: + depressed affect Mood: + depressed mood ("Better today") Thought Process: goal directed thought process, clear/coherent thought process and thought association intact Thought Content: reality based without delusions Suicidal Thoughts: denies suicidal thoughts (At present, admits to SI with specific plan last evening) Verbalized consideration to rip her bed sheets and hang herself off of the door knob Homicidal Thoughts: denies homicidal thoughts Hallucinations: no auditory hallucinations and no visual hallucinations Cognition: remote memory grossly intact, attention grossly intact and language grossly intact Insight: + limited insight Judgement: + fair judgement Vital Signs (Past 24 Hours) Last Vital Signs Temp 36.6 C 12/12/18 06:54 Pulse 85 12/12/18 06:55 Resp 18 12/12/18 06:54 BP 112/76 12/12/18 06:55 Pulse Ox 98 12/07/18 20:50 Results & Data Current Inpatient Medications Current Inpatient Medications: Current Inpatient Medications Acetaminophen (Tylenol) 650 mg PO Q4H PRN PRN Reason: Headache or Minor Fever Stop: 01/06/19 21:22 Last Admin: 12/09/18 20:05 Dose: 650 mg Documented by: Al Hydrox/Mg Hydrox/Simethicone (Maalox) 30 ml PO Q4H PRN PRN Reason: GI Upset Stop: 01/06/19 21:22 Bismuth Subsalicylate (Kaopectate) 15 ml PO PRN PRN PRN Reason: Loose Stool Stop: 01/06/19 21:22 Diphenhydramine HCl (Benadryl Capsule) 50 mg PO Q6 PRN PRN Reason: Nausea Stop: 01/06/19 21:24 Fluoxetine HCl (Prozac) 20 mg PO QAM YUNIEL Stop: 01/10/19 08:59 Last Admin: 12/12/18 09:06 Dose: 20 mg Documented by: Hydroxyzine HCl (Vistaril) 50 mg PO HSZ PRN PRN Reason: Insomnia Stop: 01/06/19 21:22 Last Admin: 12/11/18 21:47 Dose: 50 mg Documented by: Hydroxyzine HCl (Vistaril) 25 mg PO Q4H PRN PRN Reason: Anxiety Stop: 01/06/19 21:22 Last Admin: 12/11/18 12:52 Dose: 25 mg Documented by: Lorazepam (Ativan) 0.5 mg PO Q6 PRN PRN Reason: Anxiety Stop: 01/06/19 21:27 Last Admin: 12/11/18 08:26 Dose: 0.5 mg Documented by: Magnesium Hydroxide (Milk Of Magnesia) 30 ml PO DAILY PRN PRN Reason: Constipation Stop: 01/06/19 21:22 Sodium Chloride ([place] Nasal) 1 - 2 sprays NA PRN PRN PRN Reason: Nasal Dryness/Congestion Stop: 01/06/19 21:22 Mental Health & Subst Abuse Tx Therapist Name of Therapist: none Fisher Scallop Name of Fisher Scallop: none Post Discharge Appointments Primary Care Physician Name Of Family Doctor: [facility] - Krystle Reyes PA-C Primary Care Provider Appointment Comment: [address] [place] [address] [address], [place] [id number] Contact Information Discharge Discharge Address: [address] [place] [id number]
[2018-12-13] MEDS: FLUOXETINE HCL 20 MG CAP PO SCH (08:46)
--- NOTE | 2018-12-13 10:51 | Psychiatric Progress Note ---
Date of Service December 13, 2018 Impression / Recommendations Impression 33-year-old female with long history of depression and anxiety, has been treated with moderate dose of Zoloft for many years but complains of waning efficacy. Status post Zoloft overdose in the setting of abrupt partner relational conflict with impulsive toxic ingestion immediately following her discovery of infidelity. While she initially endorsed some ambivalence about the unsuccessful nature of her suicide attempt, she is denying ongoing suicidal ideation or passive wish and expressing hopefulness that she will be able to reconcile with her girlfriend at time of psychiatric admission following me dical clearance. Family meeting with girlfriend was held, which demonstrated a rather codependent relationship - status of their relationship remains unclear. Fluoxetine has been titrated to a dose of 40mg daily during her admission. Although patient admits to resolution of SI, she admits that there has not been a change in how she plans to handle these thoughts after discharge, which leaves her at high risk of impulsive harm to self if discharged. Inpatient psychiatric admission remains medically necessary. (1) Suicide attempt: 12/08/2018 -Impulsive toxic ingestion as per admission HPI -Denying ongoing suicidal ideation or intent at time of admission to behavioral health unit -Patient reports period of monitoring and assistance with coping strategies prior to discharge to mitigate risk for further self injury 12/10 - 12/11 - Denies SI 12/12 - Admits to SI last evening with specific plan to rip her sheets and hang herself on the door knob, denies act of furtherance - Continue to assist with development of safety planning and practicing effective coping strategies 12/13 - Denies SI today - Has been working on safety planning, but is still unable to verbalize a reliable safety plan aside from having "confidence" she won't try to hurt herself again (2) Major depressive disorder: 12/08/2018 -Patient admitted to the mental health unit on a voluntary status -She will be maintained on suicide precautions on the locked unit and expected to participate in unit programming as appropriate -She will require establishment of outpatient psychiatric and psychological follow-up -We will continue to hold antidepressant until symptoms of serotonin toxicity have completely abated. Given her long history of depression and anxiety, it appears likely that she will require re-initiation of an antidepressant to prevent further decompensation. As mood trend appears recently negative even prior to this acute circumstance, alternative SSRI choices will be considered. She may also benefit from something like mirtazapine given the significant GI symptoms she experiences with her anxiety chronically. 12/09/2018 -Preliminary visit with girlfriend went well. She will need a family meeting scheduled which appears unlikely to occur until Monday -Patient not yet able to convincingly contract for safety outside of the hospital -We will continue to hold antidepressant until dizziness is resolved 12/10 - Symptoms which may have been related to a serotonin toxicity have repor tedly improved, pt reporting only one episode of dizziness today which she states was related to a position change - Reviewed antidepressant medication possibilities with patient, who is in favor of initiation of fluoxetine - reviewed risks, benefits, and potential side effects of the medication, patient verbalizing understanding - Fluoxetine 20mg ordered for tomorrow morning, pt instructed to hold dose if she continues to have physical symptoms of serotonin syndrome 12/11 - 20mg of fluoxetine held this morning due to physical complaints verbalized by patient - only current complaints are episodic dizziness related to position changes - pt was agreeable to beginning 10mg of fluoxetine this morning, with titration to 20mg tomorrow morning if she tolerates initial dose. S/S of serotonin syndrome were reviewed, pt encouraged to inform staff of any physical complaints - Family meeting scheduled with girlfriend this afternoon 12/12 - Continue fluoxetine 20mg daily, consider further titration to 40mg tomorrow - Status of relationship with girlfriend remains unclear at this time - Coordinate aftercare planning with regard to outpatient providers 12/13 - Additional dose of fluoxetine provided this morning, so will receive a total of 40mg today - continue 40mg daily - Has been communicating regularly with girlfriend, who has been supportive recently - Coordinate aftercare plans, as MA is not yet active (3) Serotonin syndrome: 12/08/2018 -Patient medically cleared for transfer yesterday -Demonstrating mild residual symptoms of serotonin toxicity this morning. Vital signs fairly unremarkable apart from mild tachycardia at 92 bpm -We will continue Ativan 0.5 mg every 6 hours as needed for now -She was encouraged to push oral fluid intake -repeat CMP and CBC in a.m. 12/09/2018 -Vital stable. Repeat labs look good as above apart from elevated BUN. Patient strongly encouraged to increase oral fluid intake Still holding antidepressant as above 12/10 - Symptoms nearly resolved; pt agreeable to initiating SSRI tomorrow morning, encouraged to hold if symptoms recur 12/11 - Current reports of episodic dizziness with position changes is not considered to be a continuation of possible serotonin syndrome. Fluoxetine will be initiated at a lower dosage than initially discussed, patient encouraged to inform staff of any physical complaints 12/12 - Considered resolved at this time (4) Generalized anxiety disorder: 12/08/2018 -Appears long-standing and not simply relegated to times of mood decompensation -Continue Ativan and hydroxyzine prn's -We will consider alternative antidepressant treatment options when serotonin toxicity is fully resolved 12/10 - Continue hydroxyzine prn, discussed favoring hydroxyzine over lorazepam if possible - Initiating fluoxetine 20mg as above to target mood and anxiety 12/11 - As above Inventory Assets Strengths: Help seeking Needs: Provision of safety, therapy, pharmacotherapy Risk Factors Assessment Male: No : Yes Do You Have Access To A Gun?: No Health Problems: No Mental Health Diagnoses: Yes Substance Use Disorders: No Previous Attempt: No Family History of Suicide: No Previous Psychiatric Hospitalization: No Hopelessness: No Protective Factors Assessment : No Employed: Yes Interval History Identifying Information MARTINA BARDALES is a 33-year-old F admitted on 12/07/18 18:39 on a 201 voluntary commitment status post sertraline overdose in a suicide attempt. She was admitted from the medical floor on 12/07/2018 following medical clearance. Chief Complaint "I'm feeling pretty good today." Review of Systems Notes Constitutional: denied Cardiovascular: denied Respiratory: denied Gastrointestinal: denied Neurological: denied Psychiatric: denies symptoms other than stated above Total of at least 10 systems reviewed, pertinent positives as above and in HPI. Sleep Information Total Hours of Sleep: 6.25 Sleep Comments: pt on q-15 minute checks Meal Information Percent Meal Consumed - Breakfast: 75 Percent Meal Consumed - Lunch: 0 Percent Meal Consumed - Dinner: 100 Nutrition Comment: pt. upset after family meeting. meal dated, labeled and refrigerated Subjective Subjective Patient was seen & assessed and interval progress reviewed with nursing and social work. Staff reports the patient has been participating in more groups recently. She has been taking frequent phone calls from her girlfriend. Pt rated her mood a 7/10 and "happy" last evening. Pt was seen today to assess progress since admission. Pt states she is feeling "pretty good today." Patient states that she is rather proud of herself, as she was able to stay out of her room most of the day yesterday. Patient states that although she was tired, she felt happy she was able to socialize with peers and read a bit. Patient states that she continues to receive visits and phone calls from her girlfriend, who at this time seems to be supportive. Patient denies continued suicidal ideation; however, is unable to verbalize a concrete safety plan for use after discharge. When asked how she plans to approach negative thoughts or suicidality different after this admission, the patient simply states "I am just pretty confident that it will not happen anymore." This provider emphasized the importance of having safety check points, and a clear idea of ways to ask for help or distract herself from these thoughts in the future. Patient continues to state that she has not put much thought into a concrete safety plan during this admission. Patient was encouraged to do so, especially as she states she is "antsy to get back to work." This provider expressed concern that there is not much difference in how she may handle the situations in the future, putting her at risk for future impulsive suicidal actions. Patient verbalized understanding of this concern, and was agreeable to focus again on ways she plans to manage negative thoughts moving forward. We discussed potential to titrate fluoxetine to 40 mg daily, which patient is agreeable with. Risks, benefits, and potential side effects were reviewed - patient verbalized understanding and was agreeable with the plan. Patient denies other acute needs or concerns at this time. Physical Exam Psychiatric Orientation: alert, oriented x 3 and cooperative Apperance: appropriately dressed, appropriately groomed and appeared stated age Eye Contact: good eye contact Motor Behavior: steady gait and station and no abnormal motor movements Speech: normal rate/rhythm/volume of speech Affect: + blunted affect (appearing fatigued and mildly subdued) and mood congruent with affect; no tearful affect Mood: no depressed mood ("I feel really good actually") Thought Process: goal directed thought process, clear/coherent thought process and thought association intact Thought Content: reality based without delusions; no hopelessness and no worthlessness Suicidal Thoughts: denies suicidal thoughts, denies suicidal plan and denies suicidal intent Homicidal Thoughts: denies homicidal thoughts Hallucinations: no auditory hallucinations and no visual hallucinations Cognition: attention grossly intact and language grossly intact Insight: + fair insight Judgement: + fair judgement Vital Signs (Past 24 Hours) Last Vital Signs Temp 36.6 C 12/13/18 06:44 Pulse 81 12/13/18 06:44 Resp 18 12/13/18 06:44 BP 128/76 12/13/18 06:44 Pulse Ox 98 12/07/18 20:50 Results & Data Current Inpatient Medications Current Inpatient Medications: Current Inpatient Medications Acetaminophen (Tylenol) 650 mg PO Q4H PRN PRN Reason: Headache or Minor Fever Stop: 01/06/19 21:22 Last Admin: 12/09/18 20:05 Dose: 650 mg Documented by: Al Hydrox/Mg Hydrox/Simethicone (Maalox) 30 ml PO Q4H PRN PRN Reason: GI Upset Stop: 01/06/19 21:22 Bismuth Subsalicylate (Kaopectate) 15 ml PO PRN PRN PRN Reason: Loose Stool Stop: 01/06/19 21:22 Diphenhydramine HCl (Benadryl Capsule) 50 mg PO Q6 PRN PRN Reason: Nausea Stop: 01/06/19 21:24 Fluoxetine HCl (Prozac) 20 mg PO NOW ONE Stop: 12/13/18 10:50 Fluoxetine HCl (Prozac) 40 mg PO QAM YUNIEL Stop: 01/13/19 08:59 Hydroxyzine HCl (Vistaril) 50 mg PO HSZ PRN PRN Reason: Insomnia Stop: 01/06/19 21:22 Last Admin: 12/12/18 21:26 Dose: 50 mg Documented by: Hydroxyzine HCl (Vistaril) 25 mg PO Q4H PRN PRN Reason: Anxiety Stop: 01/06/19 21:22 Last Admin: 12/11/18 12:52 Dose: 25 mg Documented by: Lorazepam (Ativan) 0.5 mg PO Q6 PRN PRN Reason: Anxiety Stop: 01/06/19 21:27 Last Admin: 12/11/18 08:26 Dose: 0.5 mg Documented by: Magnesium Hydroxide (Milk Of Magnesia) 30 ml PO DAILY PRN PRN Reason: Constipation Stop: 01/06/19 21:22 Sodium Chloride ([place] Nasal) 1 - 2 sprays NA PRN PRN PRN Reason: Nasal Dryness/Congestion Stop: 01/06/19 21:22 Mental Health & Subst Abuse Tx Psychiatrist Name of Psychiatrist: Renetta Bowles Psychiatrist's Time of Appointment with Psychiatrist: Will need approval for county, then can be scheduled Psychiatric Appointment Comment: [address] [place] [address] Therapist Name of Therapist: [facility] Therapist's Date of Therapist Appointment: 12/21/18 Time of Therapist Appointment: 8:30 a.m. Therapy Appointment Comment: [address] [place] [address] Solid Surface Fabricator Name of Solid Surface Fabricator: [employer] Phone Number for Solid Surface Fabricator: Case Management Appointment Comment: [address] [place] [address] Post Discharge Appointments Primary Care Physician Name Of Family Doctor: [facility] - Krystle Reyes PA-C Primary Care Time of Appointment with PCP: Follow up as needed. Provider Appointment Comment: [address] [place] [address] Dr Villalobos, CELESTE Lux [id number] Contact Information Discharge Discharge Address: [address] [place] [address] [place] [address]
[2018-12-13] MEDS ORDERED: FLUOXETINE HCL 20 MG CAP PO STA (10:55)
[2018-12-14] MEDS ORDERED: FLUOXETINE HCL 20 MG CAP PO SCH (09:00)
--- NOTE | 2018-12-14 11:39 | Discharge Summary ---
Date of Service December 14, 2018 History of Present Illness Patient presented to the ER on 12/05/2018 following an intentional overdose of sertraline taking 63 100 mg tablets. Overdose occurred in the setting of intense argument with her girlfriend after discovering that her girlfriend was cheating on her. After vomiting she experienced chest discomfort and dyspnea prompting ER presentation. Upon arrival she was reportedly afebrile but tachycardic tremulous and anxious with a QTC prolonged at 571. She was treated with sodium bicarb, mag sulfate, and Ativan with improvement. At that time she stated that she truly wanted to end her life with the overdose. On the medical floor she was treated for a mild serotonin toxicity with resolution of QTC prolongation, improving myalgias, no fevers, no evidence of rhabdo. Brain MRI was checked and normal after complaint of feeling of heaviness and numbness throughout her entire left upper and lower extremities. She was seen for psychiatric consultation by Virgie Saleh PA-C, on 12/05/2018 summarized as follows: Patient admitted to taking 63 100 mg sertraline tablets after finding other female at the home that she shares with her girlfriend and believed that her girlfriend was cheating on her and impulsively took the medication in an attempt of self-harm. After vomiting she called her girlfriend to take her to the ER, ultimately transported by her girlfriend's ex-. 302 petitioning statement completed by the ER indicating that the patient admitted in the ER that she was in fact trying to kill herself. Patient later stated "I made a stupid choice." She acknowledged "I just wanted to " at the time of her ingestion. She denied current suicidality at time of psychiatric consultation but acknowledged ambivalence about being alive. "In a small way I wish it would have worked because may be that she would feel bad about which she did to me." She indicated that the action was impulsive and had not previously been considering suicide. She noted worsening mood prior to this acute circumstance with depressive symptoms including increased desire to sleep, difficulty falling asleep, fluctuant appetite, increased hopelessness. She also noted increased anxiety including racing thoughts, difficulty concentrating. She denied recent panic attacks but noted historical panic attacks. Indicated she has been on Zoloft since 13 years old but recently feeling that it has been less effective. Has not been able to tolerate higher doses in the past. She denied HI, SIB, AVH, paranoia, herbert, hypomania, OCD, PTSD, eating disorder. On interview this morning patient presents similarly. She reports depression dates back to high school years but denies previously considering suicide. She describes her mood as "broken hearted." She states that she loves her girlfriend of 2 years and hopes that they will be able to reconcile. She has always struggled with low mood at baseline and excessive worry. Anxiety not uncommonly so severe that it causes nausea to the point of vomiting. She has had panic attacks in the past, but none recent and she denies agoraphobia. She first began antidepressant treatment around 2008 with Zoloft with some perceived benefit. Augmentation trials with trazodone and BuSpar were not well-tolerated. She denies alternative antidepressant treatment history. She confirms absence of history of clear bipolar symptoms or history of psychosis. She continues to feel cognitively foggy, and balanced, and a little sweaty from her sertraline overdose. Ativan prn dose last night was helpful in mitigating some of the symptoms. She expresses significant sadness but denies hopelessness or ongoing suicidal ideation at present. Physical Exam Psychiatric Orientation: alert and oriented x 3 Apperance: appropriately dressed and appropriately groomed Eye Contact: + fair eye contact Motor Behavior: + tremor Speech: normal rate/rhythm/volume of speech The patient's affect is somewhat anxious at times, but generally euthymic. "Nervous right now, but much better." Thought Process: goal directed thought process, linear/logical thought process and clear/coherent thought process Thought Content: reality based without delusions Suicidal Thoughts: denies suicidal thoughts The patient is future oriented and describes number of plans for the future Homicidal Thoughts: denies homicidal thoughts Hallucinations: no auditory hallucinations Cognition: recent memory grossly intact, remote memory grossly intact, attention grossly intact and language grossly intact Estimated Intelligence: average estimated intelligence Insight: + fair insight Judgement: + fair judgement Vital Signs (Past 24 Hours) Last Vital Signs Temp 36.5 C 12/14/18 10:31 Pulse 81 12/14/18 10:31 Resp 18 12/14/18 10:31 BP 103/69 12/14/18 10:31 Pulse Ox 98 12/14/18 10:31 Principal Diagnosis Depression, not otherwise specified Psychiatric Data During the course of hospitalization the patient was offered various modalities of psychiatric treatment and education. Specifically, she participated fairly actively in individual, group and activity therapies. Also, family interventions were provided with the patient's girlfriend and domestic partner. In addition, the patient was started on fluoxetine and the dose of this medication was titrated to 40 mg a day. The patient indicated that she was tolerating fluoxetine well, noted no side effects, and also reported improved mood and diminished anxiety. The patient also reports that hydroxyzine 25 mg every 4 hours "as needed" for anxiety has been quite effective without causing excess sedation. She also found hydroxyzine 50 mg at bedtime was helpful in sleep induction and sleep maintenance. In her individual and group therapies the patient focused on developing a plan for safety in the community. She focused on issues related to establishing and maintaining certain boundaries in her relationship with her girlfriend, as well as the need to understand that the girlfriend, herself, has certain emotional issues that need to be taken into consideration and understood. The patient's thoughts of suicide resolved, and the patient consistently reported that she was no longer having any thoughts of suicide. In fact, the patient reports that the very thought of taking another overdose is emotionally distressing to her, in part because the entire experience associated with her overdose of sertraline was so unpleasant. She may plans to live with a friend following her discharge, and she and her girlfriend, Jefferson, plan to see each other regularly and work on their relationships before deciding whether or not to live together again. When asked on the day of discharge what she would do if she returned to the community and Jefferson were to tell her that she did not wish to pursue the relationship any further, the patient said "well, I realize that could happen. Of course I will be extremely upset, and I realize that I might even have some thoughts of suicide, but I believe that I now know how to avoid impulsively acting on such thoughts." Day of Discharge Assessment On the day of discharge, the patient was found to be appropriately dressed and groomed. She was fully cooperative with the discharge assessment. She was mildly tremulous (right hand) but this dissipated and stopped during the encounter, and the patient explained that she has always gotten "nervous" under certain circumstances, and today she is eager to be discharged. Patient's eye contact is fair. Her thought processes demonstrated tight associations. Her speech is delivered at a normal rate and volume and is fully spontaneous. The patient's thought content is devoid of any psychotic features. She is able to say that she recognizes that she can expect to encounter emotional crises in the future, and now feels prepared to cope with these crisis without behaving impulsively. Patient reports that she is not having any thoughts of suicide and is future oriented, describes both short and long-term plans for the future, and is able to describe her mind for safety in the community. Patient also reports that she is having no thoughts of causing physical harm to the person or property of others. 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 Transition of Care Transition Of Care Record: was reviewed with the patient Advance Directives Advance Directives Information Provided: Yes Advance Directives: No Mental Health Advance Directive: No Advance Directives on File: No Living Will: No Power of [employer]: No Advance Directives Reason:: Declines as Mental Health Visit. Risk Factors Assessment History of serious suicide attempt. Major depression. Access to lethal means. Difficulty in her rheumatic relationship. These factors are mitigated by her commitment to ongoing treatment, her commitment to safety, and her improved coping strategies. Male: No : Yes Do You Have Access To A Gun?: No Health Problems: No Mental Health Diagnoses: Yes Substance Use Disorders: No Previous Attempt: No Family History of Suicide: No Previous Psychiatric Hospitalization: No Hopelessness: No Protective Factors Assessment : No Employed: Yes Stable Relationships: Yes Supportive Family: Yes Tobacco Cessation at Discharge Tobacco Cessation Medication Prescribed at Discharge: Not Applicable/Non-Smoker Total Time Total Time Spent: Greater Than 30 Minutes Total Time Includes: Examination of the patient, Discharge Planning, Medication Reconciliation and Communication with other providers Discharge Data Lab Results 12/09/18 12/09/18 06:07 06:07 WBC 8.45 RBC 5.03 Hgb 15.5 Hct 45.8 MCV 91.1 MCH 30.8 MCHC 33.8 RDW Std Deviation 41.6 RDW Coeff of Fartun 12.5 Plt Count 291 MPV 10.2 Immature Gran % (Auto) 0.2 Neut % (Auto) 57.8 Lymph % (Auto) 32.0 [place] % (Auto) 7.8 Eos % (Auto) 1.8 Baso % (Auto) 0.4 Immature Gran # (Auto) 0.02 Neut # (Auto) 4.89 Lymph # (Auto) 2.70 [place] # (Auto) 0.66 H Eos # (Auto) 0.15 Baso # (Auto) 0.03 Sodium 138 Potassium 4.0 Chloride 102 Carbon Dioxide 30 Anion Gap 6.0 BUN 18 Creatinine 0.88 Est Cr Clr Drug Dosing 91.3 Est GFR ( Amer) 98.7 Est GFR (Non-Af Amer) 85.1 BUN/Creatinine Ratio 20.4 H Glucose 93 Calcium 9.3 Total Bilirubin 0.4 AST 10 L ALT 20 Alkaline Phosphatase 87 Total Protein 7.8 Albumin 4.1 Globulin 3.7 Albumin/Globulin Ratio 1.1 Hospital Course (1) Suicide attempt: 12/08/2018 -Impulsive toxic ingestion as per admission HPI -Denying ongoing suicidal ideation or intent at time of admission to behavioral health unit -Patient reports period of monitoring and assistance with coping strategies prior to discharge to mitigate risk for further self injury 12/10 - 12/11 - Denies SI 12/12 - Admits to SI last evening with specific plan to rip her sheets and hang herself on the door knob, denies act of furtherance - Continue to assist with development of safety planning and practicing effective coping strategies 12/13 - Denies SI today 12/14 -The patient continues to deny suicidal ideation. Today, she was able to describe in some detail her plan for safety upon return to the community. She also notes that she feels that she is learned a number of coping strategies here in the hospital and, perhaps most importantly, she has become more aware that other persons are experiencing distress that is similar to hers and she realizes that she is not alone. -The patient spontaneously tells us that she realizes that she is likely to experience emotional crises in the future, particularly within the context of her relationship with her girlfriend. However, she says that she believes that she now has good strategies to avoid acting on them. She notes that she has learned that simply interrupting herself and her thoughts by essentially "standing back" and considering what she is doing while, at the same time, "walking away and taking a break" is helpful to her in terms of impulsively acting up on feelings. -We considered the "middle step," by which is meant that between an emotion and an action needs to be carefully considering and processing the emotion before taking an action. 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 The patient laughed and said, "I would not have the guts to steal something from work. There are cameras everywhere and I do get caught!" Patient also says that the active regurgitating the overdose that she had taken was so unpleasant, and the complications associated with the overdose were so severe that she tells us that the very thought of taking another drug overdose discussed her. (2) Major depressive disorder: 12/08/2018 -Patient admitted to the mental health unit on a voluntary status -She will be maintained on suicide precautions on the locked unit and expected to participate in unit programming as appropriate -She will require establishment of outpatient psychiatric and psychological follow-up -We will continue to hold antidepressant until symptoms of serotonin toxicity have completely abated. Given her long history of depression and anxiety, it appears likely that she will require re-initiation of an antidepressant to prevent further decompensation. As mood trend appears recently negative even prior to this acute circumstance, alternative SSRI choices will be considered. She may also benefit from something like mirtazapine given the significant GI symptoms she experiences with her anxiety chronically. 12/09/2018 -Preliminary visit with girlfriend went well. She will need a family meeting scheduled which appears unlikely to occur until Monday -Patient not yet able to convincingly contract for safety outside of the hospital -We will continue to hold antidepressant until dizziness is resolved 12/10 - Symptoms which may have been related to a serotonin toxicity have reportedly improved, pt reporting only one episode of dizziness today which she states was related to a position change - Reviewed antidepressant medication possibilities with patient, who is in favor of initiation of fluoxetine - reviewed risks, benefits, and potential side effects of the medication, patient verbalizing understanding - Fluoxetine 20mg ordered for tomorrow morning, pt instructed to hold dose if she continues to have physical symptoms of serotonin syndrome 12/11 - 20mg of fluoxetine held this morning due to physical complaints verbalized by patient - only current complaints are episodic dizziness related to position changes - pt was agreeable to beginning 10mg of fluoxetine this morning, with titration to 20mg tomorrow morning if she tolerates initial dose. S/S of serotonin syndrome were reviewed, pt encouraged to inform staff of any physical complaints - Family meeting scheduled with girlfriend this afternoon 12/12 - Continue fluoxetine 20mg daily, consider further titration to 40mg tomorrow - Status of relationship with girlfriend remains unclear at this time - Coordinate aftercare planning with regard to outpatient providers 12/13 - Additional dose of fluoxetine provided this morning, so will receive a total of 40mg today - continue 40mg daily - Has been communicating regularly with girlfriend, who has been supportive recently - Coordinate aftercare plans, as MA is not yet active 12/14 -The patient reports that she feels that she is tolerating fluoxetine 40 mg daily without any particular difficulty. -She notes that she realizes that she will need ongoing treatment for depression, and although her mood has improved considerably she recognizes that symptoms of depression can wax and wane. (3) Serotonin syndrome: 12/08/2018 -Patient medically cleared for transfer yesterday -Demonstrating mild residual symptoms of serotonin toxicity this morning. Vital signs fairly unremarkable apart from mild tachycardia at 92 bpm -We will continue Ativan 0.5 mg every 6 hours as needed for now -She was encouraged to push oral fluid intake -repeat CMP and CBC in a.m. 12/09/2018 -Vital stable. Repeat labs look good as above apart from elevated BUN. Patient strongly encouraged to increase oral fluid intake Still holding antidepressant as above 12/10 - Symptoms nearly resolved; pt agreeable to initiating SSRI tomorrow morning, encouraged to hold if symptoms recur 12/11 - Current reports of episodic dizziness with position changes is not considered to be a continuation of possible serotonin syndrome. Fluoxetine will be initiated at a lower dosage than initially discussed, patient encouraged to inform staff of any physical complaints 12/12 - Considered resolved at this time (4) Generalized anxiety disorder: 12/08/2018 -Appears long-standing and not simply relegated to times of mood decompensation -Continue Ativan and hydroxyzine prn's -We will consider alternative antidepressant treatment options when serotonin toxicity is fully resolved 12/10 - Continue hydroxyzine prn, discussed favoring hydroxyzine over lorazepam if possible - Initiating fluoxetine 20mg as above to target mood and anxiety 12/11 - As above 12/14 -The patient continues to report anxiety, and notes that the anxiety tends to wax and wane in response to situational factors. For example, today during her assessment she was mildly tremulous, but notes that she had not been feeling particularly anxious before starting interview and recognizes that the anxiety levels are likely to diminish once the discharge has been finalized. -Patient reports that she did not like Ativan as a anxiolytic because it made her feel somewhat oversedated and "fuzzy." However, she notes that hydroxyzine 25 mg once or twice a day with hydroxyzine 50 mg at bedtime has been quite eff ective both for anxiety at the lower dose, and, at the higher dose, for sleep without causing excess sedation. Mental Health & Subst Abuse Tx Psychiatrist Name of Psychiatrist: Renetta Bowles Psychiatrist's Time of Appointment with Psychiatrist: Can be scheduled after intake Psychiatric Appointment Comment: [address] [place] [address] Psychiatrist Release of Information: Obtained, Reviewed and Signed Therapist Name of Therapist: [facility] Therapist's Date of Therapist Appointment: 12/21/18 Time of Therapist Appointment: 8:30 a.m. Therapy Appointment Comment: [address] [place] [address] [place] [address] Therapist Release of Information: Obtained, Reviewed and Signed Window Decorator Name of Window Decorator: [facility] Phone Number for Window Decorator: Date of Appointment with Window Decorator: 12/20/18 Time of Appointment with Window Decorator: 9 am Case Management Appointment Comment: [address] [place] [address] [place] [address] Window Decorator Release of Information: Obtained, Reviewed and Signed Post Discharge Appointments Primary Care Physician Name Of Family Doctor: [facility] - Krystle Reyes PA-C Primary Care Time of Appointment with PCP: Follow up as needed. Provider Appointment Comment: [address] [place] [address] Dr Villalobos, [place] [id number] Primary Care Release of Information: Obtained, Reviewed and Signed Smoking Cessation Counseling Tobacco Cessation Medication Prescribed at Discharge: Not Applicable/Non-Smoker Contact Information Discharge Discharge Address: [address] [place] [address], [place] [address] Discharge Plan Discharge Items Patient Disposition: Home - Self-Care Reason For Visit: DEPRESSION Discharge Diagnosis: Depression, NOS Activity: Resume your previous activity Activity Comment: May return to work on 12/15/18 Non-emergency contact: Primary Care Provider and Lining Vamper Call non-emergency contact if: you have any medication questions and your symptoms worsen Follow-up/Referrals: Krystle Reyes PA-C [Primary Care Provider] - Diet: Regular Addtl Attending Provider Instructions: Use your safety plan as needed. Take breaks and "walk away" if suicidal impulses arise. Remember that you're not alone. Pending Studies at Discharge: No Stand-Alone Forms: [facility], Smoking Cessation Medications and DC Order Prescriptions: New hydroxyzine HCl 25 mg Tablet 25 mg PO Q4H PRN (Reason: Anxiety or Sleep) Qty: 30 RF: 2 fluoxetine 20 mg Capsule 40 mg PO QAM Qty: 15 RF: 1 Discontinued acetaminophen [Mapap (acetaminophen)] 325 mg Tablet 650 mg PO Q4H PRN (Reason: pain) Qty: 30 RF: 0 diphenhydramine HCl [Benadryl] 25 mg capsule 25 mg PO Q8H PRN (Reason: nausea) Qty: 14 RF: 0 Discharge Orders: Discharge Order (Routine); Ordered 12/14/18 Ordered By: uJan Gaona Admission Data Admit Date/Time: 12/07/18 18:39 Attending Provider: Adriana Huerta Admit Provider: Hussein Ellis Primary Care Provider: Krystle Reyes Other Interventions: Discharge Summary Assessment (RN) Last Done: 12/14/18 10:31 PSY Interdisciplinary Discharge Planning Last Done: 12/14/18 10:33 Coding Level of Care Code 97440 D/C day mgmt > 30 min Diagnoses Suicide attempt T14.91XA Major depressive disorder F32.9 Serotonin syndrome G25.79 Generalized anxiety disorder F41.1
== END 2018-12-14 13:50 | disposition home or self-care (01) | DRG 881 ==
LOC: SUATTDRO 18:39 → 3S 18:39